=== PATIENT | female | born 1990 | race American Indian/Alaskan Native ===

== ENCOUNTER 2020-11-19 16:51 | Emergency (ER) | payer OTHER, MEDICAID, SELFPAY ==
[2020-11-19 16:55] VITALS: BP 165/100; PULSE 111; RESP 15; TEMP 37.8; O2SAT 97; BMI 26.8
--- NOTE | 2020-11-19 17:07 | ED_ITS ---
HPI - General Adult <Isiah Shane DO - Last Filed: 11/20/20 07:25> General Chief complaint: Abdominal Pain Stated complaint: RT THIGH SPIDER BITES THROWING UP Time Seen by Provider: 11/19/20 17:03 Source: patient Mode of arrival: Ambulatory Limitations: no limitations History of Present Illness HPI narrative: Patient is a 29-year-old female who is here for evaluation of multiple symptoms. She states she has 2 spider bites on her right thigh that she would like to have looked at. States she has had these in the past but these have lasted longer. She also states she has been having multiple episodes of vomiting today. No abdominal pain. She states that every time she tries to eat she throws up. Does not have any nausea medication at home. Related Data Previous Rx's Medication Instructions Recorded cephalexin 500 mg PO BID 7 Days #14 cap 11/19/20 ondansetron 4 mg PO Q6H PRN #14 tab 11/19/20 Allergies Allergy/AdvReac Type Severity Reaction Status Date / Time No Known Drug Allergies Allergy Verified 11/19/20 17:03 Review of Systems <Isiah Shane DO - Last Filed: 11/20/20 07:25> Constitutional Constitutional: Denies chills, Denies fever(s) and Denies headache(s) Eyes Eyes: Denies change in vision ENT Ears, Nose, Mouth, and Throat: Denies headache(s) and Denies sore throat Cardiovascular Cardiovascular: Denies chest pain and Reports dyspnea (With the vomiting) Respiratory Respiratory: Reports dyspnea (With the vomiting) Gastrointestinal Gastrointestinal: Denies abdominal pain, Denies change in bowel habits, Reports nausea and Reports vomiting Genitourinary Genitourinary: Denies dysuria Genitourinary: Denies dysuria and Denies vaginal discharge Musculoskeletal Musculoskeletal: Denies arthralgias and Denies myalgias Integumentary/Breasts Comments: Spider bites on right thigh Neurologic Neurologic: Denies behavioral changes and Denies headache(s) Psychiatric Psychiatric: Denies behavioral changes Hematologic/Lymphatic On Anticoagulants: No Allergic/Immunologic Allergic/Immunologic: Denies urticaria Patient History <Isiah Shane DO - Last Filed: 11/20/20 07:25> Medical History Patient denies medical problems Social History Smoking Status: Current every day smoker Smoking Status: Current every day smoker alcohol intake frequency: holidays/special occasions only Substance Use Type: does not use Exam <DO Анна Segura Last Filed: 11/20/20 07:25> Initial Vital Signs Initial Vital Signs: Vital Signs Temperature 100.0 F H 11/19/20 16:55 Pulse Rate 111 H 11/19/20 16:55 Respiratory Rate 15 11/19/20 16:55 Blood Pressure 165/100 H 11/19/20 16:55 Pulse Oximetry 97 11/19/20 16:55 Const General: cooperative and comfortable Limitations: mental status not altered HENMT Head: normal to inspection and normocephalic Eyes General: appearance normal, both eyes and all related structures Resp Effort & Inspection: normal respiratory effort Auscultation: clear to auscultation bilaterally Cardio Rate: tachycardic Rhythm: regular rhythm GI Inspection: non-distended Palpation: soft, No firm and No tender Skin Other: Patient has 2 distinct sub cm well circumscribed red lesions on her right thigh. There is no surrounding erythema. There is no pustules. No vesicles. No drainage. No breaks in the skin. Neuro General: patient alert, patient awake and patient oriented x3 Cognition: normal cognition Speech: speech normal Extrem General: normal to inspection, capillary refill normal and No edema Psych Appearance: grossly normal and well kempt <DO Анна Tavera Last Filed: 11/20/20 05:45> Initial Vital Signs Initial Vital Signs: Vital Signs Temperature 100.0 F H 11/19/20 16:55 Pulse Rate 111 H 11/19/20 16:55 Respiratory Rate 15 11/19/20 16:55 Blood Pressure 165/100 H 11/19/20 16:55 Pulse Oximetry 97 11/19/20 16:55 Scores <DO Анна Segura Last Filed: 11/20/20 07:25> GCS [place]ar coma scale eye opening: Spontaneous Noman coma scale verbal response: Orientated [place] coma scale motor response: Obey commands Bol[place]ar coma scale total score: 15 Course <DO Анна Segura Last Filed: 11/20/20 07:25> Orders Ordered: ED Orders 11/20/20 05:52 US abdomen limited Stat Discontinued Medications Cephalexin HCl (Cephalexin 250 Mg Capsule) 500 mg PO NOW ONE Stop: 11/19/20 18:29 Last Admin: 11/19/20 19:15 Dose: 500 mg Documented by: JESS Sodium Chloride (Normal Saline 0.9%) 1,000 mls @ 1,000 mls/hr IV BOLUS ONE Stop: 11/19/20 18:56 Last Infusion: 11/19/20 19:38 Dose: 0 mls/hr Documented by: Admin: 11/19/20 18:07 Dose: 1,000 mls/hr Documented by: KATERINA Ketorolac Tromethamine (Ketorolac 30 Mg/Ml Vial) 60 mg IM NOW ONE Stop: 11/19/20 17:08 Last Admin: 11/19/20 17:31 Dose: 60 mg Documented by: KATERINA Ondansetron HCl (Ondansetron 4 Mg/2 Ml Inj) 4 mg IV NOW ONE Stop: 11/19/20 17:08 Last Admin: 11/19/20 17:31 Dose: 4 mg Documented by: KATERINA Vital Signs Vital signs: Vital Signs - 8 hr 11/19/20 16:55 Temperature 100.0 F H Pulse Rate 111 H Respiratory Rate 15 Blood Pressure 165/100 H Pulse Oximetry 97 <Noel Vega DO - Last Filed: 11/20/20 05:45> Course Course Narrative: Patient received in sign-out from Dr. Shane. She has been resting comfortably, tolerated her antibiotics orally, feels well and is ready to go. She has had her questions answered to her apparent satisfaction and understands return precautions Orders Ordered: ED Orders 11/20/20 05:52 US abdomen limited Stat Discontinued Medications Cephalexin HCl (Cephalexin 250 Mg Capsule) 500 mg PO NOW ONE Stop: 11/19/20 18:29 Last Admin: 11/19/20 19:15 Dose: 500 mg Documented by: JESS Sodium Chloride (Normal Saline 0.9%) 1,000 mls @ 1,000 mls/hr IV BOLUS ONE Stop: 11/19/20 18:56 Last Infusion: 11/19/20 19:38 Dose: 0 mls/hr Documented by: Admin: 11/19/20 18:07 Dose: 1,000 mls/hr Documented by: KATERINA Ketorolac Tromethamine (Ketorolac 30 Mg/Ml Vial) 60 mg IM NOW ONE Stop: 11/19/20 17:08 Last Admin: 11/19/20 17:31 Dose: 60 mg Documented by: KATERINA Ondansetron HCl (Ondansetron 4 Mg/2 Ml Inj) 4 mg IV NOW ONE Stop: 11/19/20 17:08 Last Admin: 11/19/20 17:31 Dose: 4 mg Documented by: KATERINA Vital Signs Vital signs: Vital Signs - 8 hr 11/19/20 16:55 Temperature 100.0 F H Pulse Rate 111 H Respiratory Rate 15 Blood Pressure 165/100 H Pulse Oximetry 97 Medical Decision Making <Isiah Shane DO - Last Filed: 11/20/20 07:25> Lab Data Lab results reviewed: Yes I reviewed the patient's lab results. Result diagrams: 11/19/20 17:05 11/19/20 17:05 Labs: Lab Results 11/19/20 11/19/20 11/19/20 Range/Units 17:05 17:05 17:05 WBC 14.3 H (4.5-11.0) X10^3/uL RBC 5.13 (4.0-5.2) X10^6/uL Hgb 16.1 H (12.0-16.0) g/dL Hct 47.7 H (36-46) % MCV 93.1 (80-100) fL MCH 31.5 (26-34) PG MCHC 33.8 (30-36) % RDW 12.5 (11.6-14.8) % Plt Count 223 (150-400) X10^3/uL Neut % (Auto) 93.0 H (50-75) % Lymph % (Auto) 2.5 L (25-40) % [place] % (Auto) 3.4 (3-14) % Eos % (Auto) 0.8 L (2-4) % Baso % (Auto) 0.3 (0-2) % Neut # (Auto) 94457 H (7670-5685) /uL Lymph # (Auto) 400 L (5739-6765) /uL [place] # (Auto) 500 (0-900) /uL Eos # (Auto) 100 (0-450) /uL Baso # (Auto) 0 (0-100) /uL PT 11.0 (10.1-12.7) SECONDS INR 1.0 (0.9-1.3) APTT 39 H (26.4-36.2) SECONDS Sodium 138 (137-145) mmol/L Potassium 4.1 (3.4-5.1) mmol/L Chloride 107 (98-107) mmol/L Carbon Dioxide 22 (22-32) mmol/L BUN 16 (7-17) mg/dL Creatinine 0.66 (0.52-1.04) mg/dL Estimated GFR > 60.0 (>60) mL/min BUN/Creatinine Ratio 24.2 H (6-22) Glucose 116 H (70-100) mg/dL Calcium 9.1 (8.4-10.2) mg/dL Total Bilirubin 0.4 (0.2-1.3) mg/dL AST 32 (14-36) IU/L ALT 25 (<35) IU/L Alkaline Phosphatase 103 (38-126) U/L Total Protein 8.1 (6.3-8.2) g/dL Albumin 4.7 (3.5-5.0) g/dL Globulin 3.4 (1.7-4.1) g/dL Albumin/Globulin Ratio 1.4 (1.0-2.8) Lipase 129 (23-300) U/L Urine RBC (0-5/HPF) Urine WBC (0-5/HPF) Ur Squamous Epith Cells (0-5/HPF) Urine Bacteria (None) Ur Culture Indicated? SARS-CoV-2 (PCR) (Negative) 11/19/20 11/19/20 Range/Units 17:05 17:20 WBC (4.5-11.0) X10^3/uL RBC (4.0-5.2) X10^6/uL Hgb (12.0-16.0) g/dL Hct (36-46) % MCV (80-100) fL MCH (26-34) PG MCHC (30-36) % RDW (11.6-14.8) % Plt Count (150-400) X10^3/uL Neut % (Auto) (50-75) % Lymph % (Auto) (25-40) % [place] % (Auto) (3-14) % Eos % (Auto) (2-4) % Baso % (Auto) (0-2) % Neut # (Auto) (1417-4306) /uL Lymph # (Auto) (3913-0461) /uL [place] # (Auto) (0-900) /uL Eos # (Auto) (0-450) /uL Baso # (Auto) (0-100) /uL PT (10.1-12.7) SECONDS INR (0.9-1.3) APTT (26.4-36.2) SECONDS Sodium (137-145) mmol/L Potassium (3.4-5.1) mmol/L Chloride (98-107) mmol/L Carbon Dioxide (22-32) mmol/L BUN (7-17) mg/dL Creatinine (0.52-1.04) mg/dL Estimated GFR (>60) mL/min BUN/Creatinine Ratio (6-22) Glucose (70-100) mg/dL Calcium (8.4-10.2) mg/dL Total Bilirubin (0.2-1.3) mg/dL AST (14-36) IU/L ALT (<35) IU/L Alkaline Phosphatase (38-126) U/L Total Protein (6.3-8.2) g/dL Albumin (3.5-5.0) g/dL Globulin (1.7-4.1) g/dL Albumin/Globulin Ratio (1.0-2.8) Lipase (23-300) U/L Urine RBC 5-10/hpf H (0-5/HPF) Urine WBC 10-30/hpf H (0-5/HPF) Ur Squamous Epith Cells 0-1 /hpf (0-5/HPF) Urine Bacteria Few (2-10) H (None) Ur Culture Indicated? Specimen cultured SARS-CoV-2 (PCR) Negative (Negative) Point of Care Testing Test Results Negative Urine Dip Bedside Urine Glucose Negative Bedside Urine Bilirubin + 1 Bedside Urine Ketone - Negative Urine Specific [place] 1.020 Bedside Urine Occult Blood + Bedside Urine pH 6.0 Bedside Urine Protein +/- 15 Bedside Urine Urobilinogen - Negative Bedside Urine Nitrite - Negative Bedside Urine Leukocytes +/- 15 Esterase Point of care testing: Point of Care Testing Test Results Negative Urine Dip Bedside Urine Glucose Negative Bedside Urine Bilirubin + 1 Bedside Urine Ketone - Negative Urine Specific [place] 1.020 Bedside Urine Occult Blood + Bedside Urine pH 6.0 Bedside Urine Protein +/- 15 Bedside Urine Urobilinogen - Negative Bedside Urine Nitrite - Negative Bedside Urine Leukocytes +/- 15 Esterase MDM Narrative Medical decision making narrative: Patient does have leukocytosis however this could be from her vomiting. Her urinalysis has also concerning for urinary tract infection. She states she has no concerns for any sexually transmitted infections. She does not have any abdominal tenderness. Is tachycardic upon arrival. Has no CVA tenderness. Rest of her abdominal labs are unremarkable. The lesions on her right anterior thigh appear well. I have low suspicion for ?spider bites ?look more like bug bites but do not have any signs of an infection. She denies any allergies to medications. Plan will be is to treat her symptoms and give her dose of oral antibiotics here in the emergency department. She can tolerate this does plan will be is to discharge home with remainder of treatment. She was given return precautions and follow-up instructions. Care turned over to Dr. Vega to follow-up on ability to tolerate oral intake. <Noel Vega, DO - Last Filed: 11/20/20 05:45> Lab Data Labs: Lab Results 11/19/20 11/19/20 11/19/20 Range/Units 17:05 17:05 17:05 WBC 14.3 H (4.5-11.0) X10^3/uL RBC 5.13 (4.0-5.2) X10^6/uL Hgb 16.1 H (12.0-16.0) g/dL Hct 47.7 H (36-46) % MCV 93.1 (80-100) fL MCH 31.5 (26-34) PG MCHC 33.8 (30-36) % RDW 12.5 (11.6-14.8) % Plt Count 223 (150-400) X10^3/uL Neut % (Auto) 93.0 H (50-75) % Lymph % (Auto) 2.5 L (25-40) % [place] % (Auto) 3.4 (3-14) % Eos % (Auto) 0.8 L (2-4) % Baso % (Auto) 0.3 (0-2) % Neut # (Auto) 79296 H (6710-4587) /uL Lymph # (Auto) 400 L (0141-8862) /uL [place] # (Auto) 500 (0-900) /uL Eos # (Auto) 100 (0-450) /uL Baso # (Auto) 0 (0-100) /uL PT 11.0 (10.1-12.7) SECONDS INR 1.0 (0.9-1.3) APTT 39 H (26.4-36.2) SECONDS Sodium 138 (137-145) mmol/L Potassium 4.1 (3.4-5.1) mmol/L Chloride 107 (98-107) mmol/L Carbon Dioxide 22 (22-32) mmol/L BUN 16 (7-17) mg/dL Creatinine 0.66 (0.52-1.04) mg/dL Estimated GFR > 60.0 (>60) mL/min BUN/Creatinine Ratio 24.2 H (6-22) Glucose 116 H (70-100) mg/dL Calcium 9.1 (8.4-10.2) mg/dL Total Bilirubin 0.4 (0.2-1.3) mg/dL AST 32 (14-36) IU/L ALT 25 (<35) IU/L Alkaline Phosphatase 103 (38-126) U/L Total Protein 8.1 (6.3-8.2) g/dL Albumin 4.7 (3.5-5.0) g/dL Globulin 3.4 (1.7-4.1) g/dL Albumin/Globulin Ratio 1.4 (1.0-2.8) Lipase 129 (23-300) U/L Urine RBC (0-5/HPF) Urine WBC (0-5/HPF) Ur Squamous Epith Cells (0-5/HPF) Urine Bacteria (None) Ur Culture Indicated? SARS-CoV-2 (PCR) (Negative) 11/19/20 11/19/20 Range/Units 17:05 17:20 WBC (4.5-11.0) X10^3/uL RBC (4.0-5.2) X10^6/uL Hgb (12.0-16.0) g/dL Hct (36-46) % MCV (80-100) fL MCH (26-34) PG MCHC (30-36) % RDW (11.6-14.8) % Plt Count (150-400) X10^3/uL Neut % (Auto) (50-75) % Lymph % (Auto) (25-40) % [place] % (Auto) (3-14) % Eos % (Auto) (2-4) % Baso % (Auto) (0-2) % Neut # (Auto) (2427-0308) /uL Lymph # (Auto) (9157-1975) /uL [place] # (Auto) (0-900) /uL Eos # (Auto) (0-450) /uL Baso # (Auto) (0-100) /uL PT (10.1-12.7) SECONDS INR (0.9-1.3) APTT (26.4-36.2) SECONDS Sodium (137-145) mmol/L Potassium (3.4-5.1) mmol/L Chloride (98-107) mmol/L Carbon Dioxide (22-32) mmol/L BUN (7-17) mg/dL Creatinine (0.52-1.04) mg/dL Estimated GFR (>60) mL/min BUN/Creatinine Ratio (6-22) Glucose (70-100) mg/dL Calcium (8.4-10.2) mg/dL Total Bilirubin (0.2-1.3) mg/dL AST (14-36) IU/L ALT (<35) IU/L Alkaline Phosphatase (38-126) U/L Total Protein (6.3-8.2) g/dL Albumin (3.5-5.0) g/dL Globulin (1.7-4.1) g/dL Albumin/Globulin Ratio (1.0-2.8) Lipase (23-300) U/L Urine RBC 5-10/hpf H (0-5/HPF) Urine WBC 10-30/hpf H (0-5/HPF) Ur Squamous Epith Cells 0-1 /hpf (0-5/HPF) Urine Bacteria Few (2-10) H (None) Ur Culture Indicated? Specimen cultured SARS-CoV-2 (PCR) Negative (Negative) Point of Care Testing Test Results Negative Urine Dip Bedside Urine Glucose Negative Bedside Urine Bilirubin + 1 Bedside Urine Ketone - Negative Urine Specific [place] 1.020 Bedside Urine Occult Blood + Bedside Urine pH 6.0 Bedside Urine Protein +/- 15 Bedside Urine Urobilinogen - Negative Bedside Urine Nitrite - Negative Bedside Urine Leukocytes +/- 15 Esterase Point of care testing: Point of Care Testing Test Results Negative Urine Dip Bedside Urine Glucose Negative Bedside Urine Bilirubin + 1 Bedside Urine Ketone - Negative Urine Specific [place] 1.020 Bedside Urine Occult Blood + Bedside Urine pH 6.0 Bedside Urine Protein +/- 15 Bedside Urine Urobilinogen - Negative Bedside Urine Nitrite - Negative Bedside Urine Leukocytes +/- 15 Esterase Discharge Plan Departure Patient Disposition: Home Clinical Impression: Urinary tract infection Qualifiers: Urinary tract infection type: acute cystitis Hematuria presence: without hematuria Qualified Code(s): N30.00 - Acute cystitis without hematuria Vomiting Qualifiers: Vomiting type: unspecified Vomiting Intractability: intractable Nausea presence: with nausea Qualified Code(s): R11.2 - Nausea with vomiting, unspecifi ed Instructions: DI for Urinary Tract Infection (UTI), DI for Vomiting -- Adult Activity Restrictions/Additional Instructions: *You have been diagnosed with [urinary tract infection and vomiting] *What to do: *Please continue to take your regular medications as directed. [ ] New medication prescriptions sent to your pharmacy: [ ] [x ] New medication written as a paper prescription [ ] No new medications given *Please follow up with your primary care provider in 2-3 days, call for an appointment. Let them know you were seen in the Emergency Department and that we ask that you be seen in follow up. We will electronically transmit a record of today's note if your PCP is in our system *If you do not have a primary care provider please contact the [facility] Resource line at [phone]. They will ask some questions about your medical history and help get you set up with a doctor in the community. *Return to Emergency Department if you should have any new, worsening or concerning symptoms, such as [fever greater than 101 F, shaking chills, worsening pain, persistent vomiting or other bothersome symptoms] Prescriptions: New cephalexin 500 mg capsule 500 mg PO BID 7 Days Qty: 14 RF: 0 ondansetron 4 mg tablet,disintegrating 4 mg PO Q6H PRN (Reason: nausea and vomiting) Qty: 14 RF: 0 Referrals: [facility] [Outside]
[2020-11-19 17:11] LABS: Add Manual Diff / Slide Review NO; Basophils Absolute Auto 0 /uL (0-100); Basophils Percent Auto 0.3 % (0-2); Eosinophils Absolute Auto 100 /uL (0-450); Eosinophils Percent Auto 0.8 % (2-4); Hematocrit 47.7 % (36-46); Hemoglobin 16.1 g/dL (12.0-16.0); Lymphocytes Absolute Auto 400 /uL (1100-4500); Lymphocytes Percent Auto 2.5 % (25-40); Mean Corpuscular HGB Conc 33.8 % (30-36); Mean Corpuscular Hemoglobin 31.5 PG (26-34); Mean Corpuscular Volume 93.1 fL (80-100); Monocytes Absolute Auto 500 /uL (0-900); Monocytes Percent Auto 3.4 % (3-14); Neutrophils Absolute Auto 13300 /uL (1500-7000); Platelet Count 223 X10^3/uL (150-400); Red Blood Cell Count 5.13 X10^6/uL (4.0-5.2); Red Cell Distribution Width 12.5 % (11.6-14.8); White Blood Cell Count 14.3 X10^3/uL (4.5-11.0)
[2020-11-19 17:22] LABS: COVID19 -Nasal RAPID Negative (Negative)
[2020-11-19 17:26] LABS: Alanine Aminotransferase 25 IU/L (<35); Albumin 4.7 g/dL (3.5-5.0); Albumin Globulin Ratio 1.4 (1.0-2.8); Alkaline Phosphatase 103 U/L (38-126); Aspartate Aminotransferase 32 IU/L (14-36); BUN Creatinine Ratio 24.2 (6-22); Bilirubin Total 0.4 mg/dL (0.2-1.3); Blood Urea Nitrogen 16 mg/dL (7-17); Calcium 9.1 mg/dL (8.4-10.2); Carbon Dioxide 22 mmol/L (22-32); Chloride 107 mmol/L (98-107); Estimated Glomerular Filt Rate > 60.0 mL/min (>60); Globulin 3.4 g/dL (1.7-4.1); Glucose 116 mg/dL (70-100); HEMOLYSIS < 15 (0-50); Lipase 129 U/L (23-300); PTT Partial Thromboplastin Tim 39 SECONDS (26.4-36.2); Potassium 4.1 mmol/L (3.4-5.1); Sodium 138 mmol/L (137-145); Total Protein 8.1 g/dL (6.3-8.2)
[2020-11-19] MEDS: ONDANSETRON 4 MG/2 ML INJ IV (17:31)
[2020-11-19] MEDS: KETOROLAC 30 MG/ML VIAL 60 MG IM (17:31)
[2020-11-19 17:56] LABS: Bacteria Urine Few (2-10); Culture Indicated Urine Specimen Cultured; RBC Urine 5-10/HPF (0-5/HPF); Squamous Epithelial Cell Urine 0-1 /HPF (0-5/HPF); WBC Urine 10-30/HPF (0-5/HPF)
[2020-11-19] MEDS: SODIUM CHLORIDE 0.9% 1,000 ML 1000 ML IV (18:07)
[2020-11-19] MEDS: cephALEXin 250 MG CAPSULE 500 MG PO (19:15)
[2020-11-19 20:48] VITALS: BP 128/77; PULSE 89; RESP 18; TEMP 36.1; O2SAT 97
--- NOTE | 2020-11-20 05:52 | DI.US.S_ITS ---
PROCEDURE: US ABDOMEN LIMITED INDICATIONS: PAIN; N/V TECHNIQUE: Real-time focused scanning was performed of the abdomen, with image documentation. COMPARISON: None. FINDINGS: Liver is normal in size and homogeneous in echotexture. No focal hepatic mass lesions. Gallbladder contains mobile gallstones. Largest gallstone measures 1.6 centimeters. No gallbladder wall thickening with gallbladder wall measuring 2.0 millimeters. No pericholecystic fluid. No sonographic Harman sign. Biliary tree is nondilated. Common bile duct measures 5.7 millimeters. Pancreas is sonographically normal. IMPRESSION: Cholelithiasis without sonographic evidence of cholecystitis. If there is continued clinical concern for cholecystitis, a nuclear medicine HIDA scan should be considered for further evaluation. Dictated by: Katie Arias MD, PhD on 11/20/2020 at 8:25 Approved by: Katie Arias MD, PhD on 11/20/2020 at 8:26
== END 2020-11-19 20:25 | disposition home or self-care (01) ==
PROVIDERS: Emergency Medicine; Emergency Provider Emergency Medicine
DX: N30.00 Acute cystitis without hematuria (principal); R11.2 Nausea with vomiting, unspecified; R06.00 Dyspnea, unspecified; Z20.822 Contact with and (suspected) exposure to COVID-19
CPT/HCPCS: 36415; 80053; 81003; 81015; 81025; 83690; 85025; 85610; 85730; 87086; 87635; 96361; 96372; 96374; 99284; C9803; J1885; J2405

== ENCOUNTER 2020-11-20 03:45 | Observation (INO) | payer OTHER, MEDICAID, SELFPAY ==
[2020-11-20] VITALS (14 sets, daily range): BP systolic 115–136; BP diastolic 72–86; PULSE 90–123; RESP 16–22; TEMP 36.2–37.6; O2SAT 96–99; BMI 27.1
[2020-11-20] MEDS: ONDANSETRON 4 MG/2 ML INJ IV ×2 (04:22→15:33)
[2020-11-20] MEDS: SODIUM CHLORIDE 0.9% 1,000 ML 125 ML IV ×3 (04:24→17:19)
--- NOTE | 2020-11-20 04:29 | DI.CT.S_ITS ---
PROCEDURE: CT ABDOMEN PELVIS W CON INDICATIONS: intractable vomiting, lower abdominal pain TECHNIQUE: After the administration of oral and intravenous contrast, 5 mm thick sections acquired from the diaphragms to the symphysis. 5 mm thick coronal and sagittal reformats were performed. For radiation dose reduction, the following was used: automated exposure control, adjustment of mA and/or kV according to patient size. COMPARISON: None. FINDINGS: Image quality: Excellent. ABDOMEN: Lung bases: Lung bases are clear. Minimal subsegmental atelectasis in both lung bases. Heart size is normal. Solid organs: Liver is normal in size and enhancement. A focal area of low density adjacent to the falciform ligament is consistent with focal fatty infiltration. Gallbladder is distended with multiple stones.. Biliary system is non-dilated. Pancreas enhances normally. Spleen is normal in size and enhancement. No adrenal nodules. Kidneys are normal in size and enhancement, without hydronephrosis. The left kidney has multiple subcentimeter low-density lesions which are too small to further characterize by CT criteria but are likely cysts. Peritoneum and bowel: Stomach, small bowel, and colon loops are normal in caliber and wall thickness. No free fluid or air. The appendix is normal. Nodes and vessels: No retroperitoneal or mesenteric adenopathy. Aorta and inferior vena cava are normal in caliber. Miscellaneous: No ventral hernias. PELVIS: Genitourinary: Bladder wall thickness is normal. The uterus is normal in size and enhances margin asleep. The adnexa are normal. Miscellaneous: No inguinal hernias or adenopathy. Bones: No suspicious bony lesions. No vertebral body compression fractures. IMPRESSION: 1. Cholelithiasis without evidence of cholecystitis. There is no wall thickening or pericholecystic fluid. The gallbladder is mildly distended. Consider ultrasound. 2. Nonobstructing left renal calculi. 3. Diffuse bladder wall thickening. Findings are nonspecific but suggest cystitis. Please correlate with urinalysis. Comment: Final report is concordant with preliminary interpretation by [facility] Dictated by: Santi Figueroa M.D. on 11/20/2020 at 7:39 Approved by: Santi Figueroa M.D. on 11/20/2020 at 7:44
[2020-11-20 04:40] LABS: Add Manual Diff / Slide Review NO; Basophils Absolute Auto 0 /uL (0-100); Basophils Percent Auto 0.3 % (0-2); Eosinophils Absolute Auto 0 /uL (0-450); Eosinophils Percent Auto 0.3 % (2-4); Hematocrit 43.4 % (36-46); Hemoglobin 14.7 g/dL (12.0-16.0); Lymphocytes Absolute Auto 200 /uL (1100-4500); Lymphocytes Percent Auto 2.5 % (25-40); Mean Corpuscular HGB Conc 33.8 % (30-36); Mean Corpuscular Hemoglobin 31.3 PG (26-34); Mean Corpuscular Volume 92.6 fL (80-100); Monocytes Absolute Auto 300 /uL (0-900); Monocytes Percent Auto 3.9 % (3-14); Neutrophils Absolute Auto 7500 /uL (1500-7000); Platelet Count 185 X10^3/uL (150-400); Red Blood Cell Count 4.69 X10^6/uL (4.0-5.2); Red Cell Distribution Width 12.2 % (11.6-14.8)
[2020-11-20 04:42] LABS: Alanine Aminotransferase 22 IU/L (<35); Albumin 3.6 g/dL (3.5-5.0); Albumin Globulin Ratio 1.2 (1.0-2.8); Alkaline Phosphatase 83 U/L (38-126); Aspartate Aminotransferase 28 IU/L (14-36); BUN Creatinine Ratio 22.1 (6-22); Bilirubin Total 0.4 mg/dL (0.2-1.3); Blood Urea Nitrogen 15 mg/dL (7-17); Calcium 7.9 mg/dL (8.4-10.2); Carbon Dioxide 22 mmol/L (22-32); Chloride 109 mmol/L (98-107); Estimated Glomerular Filt Rate > 60.0 mL/min (>60); Globulin 2.9 g/dL (1.7-4.1); Glucose 131 mg/dL (70-100); HEMOLYSIS < 15 (0-50); Potassium 3.6 mmol/L (3.4-5.1); Sodium 137 mmol/L (137-145); Total Protein 6.5 g/dL (6.3-8.2)
--- NOTE | 2020-11-20 04:57 | ED_ITS ---
HPI - Nausea/Vomiting/Diarrhea General Chief complaint: Nausea/Vomiting/Diarrhea Stated complaint: has uti - nausea vomiting Time Seen by Provider: 11/20/20 03:54 Source: patient Mode of arrival: Ambulatory Limitations: no limitations History of Present Illness HPI Narrative: 29-year-old female daily smoker returns for 2nd time today and complaint of ongoing vomiting. She had come in earlier in the day with the [facility] complaint of multiple symptoms including some insect bites on her right thigh as well as multiple episodes of vomiting and some urinary complaints such as possible increased urination. She was noted to have an elevated white blood cell count and signs of UTI. She was given fluids, antiemetics and antibiotics orally and observed which she tolerated without difficulty. She was discharged home with return precautions. Since being home she has vomited multiple times and is unable to keep down even water. She now has some lower abdominal pain, left worse than right. She denies any measured fever or back pain. MD complaint: nausea, vomiting and abdominal pain Description of Vomiting: food contents Description of Diarrhea: watery Location of pain: LLQ Severity: moderate Quality: cramping and aching Pain Consistency: constant Relieving factors: none Exacerbating factors: vomiting Related Data Previous Rx's Medication Instructions Recorded cephalexin 500 mg PO BID 7 Days #14 cap 11/19/20 ondansetron 4 mg PO Q6H PRN #14 tab 11/19/20 Allergies Allergy/AdvReac Type Severity Reaction Status Date / Time No Known Drug Allergies Allergy Verified 11/19/20 17:03 Review of Systems Constitutional Constitutional: Denies chills, Denies fatigue, Denies fever(s), Denies frequent falls, Denies lethargy and Denies weakness Eyes Eyes: Denies change in vision, Denies eye discharge, Denies irritation and Denies loss of vision ENT Ears, Nose, Mouth, and Throat: Denies change in voice, Denies dizziness, Denies neck pain, Denies sore throat and Denies throat swelling Cardiovascular Cardiovascular: Denies chest pain, Denies irregular heart rhythm, Denies lightheadedness, Denies palpitations, Denies dyspnea, Denies dyspnea on exertion and Denies orthopnea Respiratory Respiratory: Denies cough, Denies dyspnea, Denies dyspnea on exertion and Denies wheezing Gastrointestinal Gastrointestinal: Reports abdominal pain, Denies change in bowel habits, Denies diarrhea, Reports nausea and Reports vomiting Genitourinary Comments: Urinary frequency Musculoskeletal Musculoskeletal: Denies neck pain and Denies numbness Integumentary/Breasts Skin/Breast: Denies pruritus, Denies erythema, Denies rash and Denies wounds Neurologic Neurologic: Denies behavioral changes, Denies confusion, Denies dizziness, Denies frequent falls, Denies loss of vision, Denies numbness and Denies weakness Psychiatric Psychiatric: Denies anxiety, Denies behavioral changes, Denies confusion, Denies depression, Denies homicidal ideation and Denies suicidal ideation Endocrine Endocrine: Denies fatigue, Denies flushing and Denies palpitations Hematologic/Lymphatic Hematologic/Lymphatic: Denies easy bruising Allergic/Immunologic Allergic/Immunologic: Denies urticaria, Denies throat swelling and Denies wheezing Patient History Medical History Patient denies medical problems Social History Smoking Status: Current every day smoker Smoking Status: Current every day smoker alcohol intake frequency: holidays/special occasions only Substance Use Type: does not use Exam Narrative Exam Narrative: GENERAL: [29] year old patient appears stated age. Well- nourished, well-developed patient, in moderate distress, mildly pale, holding an emesis bag HEAD: Atraumatic. Normocephalic. EYES: Pupils equal round and reactive. Extraocular motions intact. No scleral icterus. No injection or drainage. ENT: Dry mucous membranes Nose without bleeding, purulent drainage. Throat without erythema, tonsillar hypertrophy or exudate. Airway patent. NECK: Trachea midline. Non tender CARDIOVASCULAR: Regular rate and rhythm without murmurs, gallops, or rubs. RESPIRATORY: Clear to auscultation. Breath sounds equal bilaterally. No wheezes, rales, or rhonchi. GASTROINTESTINAL: Abdomen soft, tender in the suprapubic and left lower quadrant region, nondistended. EXTREMITIES: No edema or joint tenderness. BACK: Nontender without deformity or crepitance. No flank tenderness. NEURO: AOx3. SKIN: No rash or erythema of visible areas Initial Vital Signs Initial Vital Signs: Vital Signs Temperature 97.2 F L 11/20/20 03:53 Pulse Rate 123 H 11/20/20 03:53 Respiratory Rate 22 11/20/20 03:53 Blood Pressure 136/83 11/20/20 03:53 Pulse Oximetry 97 11/20/20 03:53 Course Orders Ordered: ED Orders 11/20/20 04:00 Complete Blood Count AUTO DIFF Stat Comprehensive Metabolic Panel Stat 11/20/20 04:29 CT abdomen pelvis w con Stat 11/20/20 05:25 COVID19 - ADMIT (WAISTLINE JOINER swab/PCR) Stat Sodium Chloride (Normal Saline 0.9%) 1,000 mls @ 125 mls/hr IV CONT ERVIN Last Infusion: 11/20/20 05:29 Dose: 0 mls/hr Documented by: Admin: 11/20/20 04:24 Dose: 125 mls/hr Documented by: LUZ Discontinued Medications Sodium Chloride (Normal Saline 0.9%) 1,000 mls @ 1,000 mls/hr IV BOLUS ONE Stop: 11/20/20 05:27 Last Admin: 11/20/20 05:07 Dose: Not Given Documented by: LUZ Ondansetron HCl (Ondansetron 4 Mg/2 Ml Inj) 4 mg IV NOW ONE Stop: 11/20/20 04:18 Last Admin: 11/20/20 04:22 Dose: 4 mg Documented by: LUZ Vital Signs Vital signs: Vital Signs - 8 hr 11/20/20 03:53 11/20/20 05:14 11/20/20 05:15 Temperature 97.2 F L Pulse Rate 123 H 113 H 108 H Respiratory Rate 22 22 Blood Pressure 136/83 121/81 Pulse Oximetry 97 98 98 11/20/20 05:30 11/20/20 06:00 11/20/20 06:30 Temperature Pulse Rate 110 H 103 H 108 H Respiratory Rate Blood Pressure Pulse Oximetry 97 96 96 11/20/20 06:42 11/20/20 07:00 11/20/20 07:30 Temperature Pulse Rate 103 H 97 H 105 H Respiratory Rate Blood Pressure 120/72 Pulse Oximetry 98 96 98 MDM - Nausea/Vomiting/Diarrhea Lab Data Result diagrams: 11/20/20 04:00 11/20/20 04:00 Labs: Lab Results 11/20/20 11/20/20 11/20/20 Range/Units 04:00 04:00 05:25 WBC 8.0 (4.5-11.0) X10^3/uL RBC 4.69 (4.0-5.2) X10^6/uL Hgb 14.7 (12.0-16.0) g/dL Hct 43.4 (36-46) % MCV 92.6 (80-100) fL MCH 31.3 (26-34) PG MCHC 33.8 (30-36) % RDW 12.2 (11.6-14.8) % Plt Count 185 (150-400) X10^3/uL Neut % (Auto) 93.0 H (50-75) % Lymph % (Auto) 2.5 L (25-40) % [place] % (Auto) 3.9 (3-14) % Eos % (Auto) 0.3 L (2-4) % Baso % (Auto) 0.3 (0-2) % Neut # (Auto) 7500 H (6742-1456) /uL Lymph # (Auto) 200 L (6569-7074) /uL [place] # (Auto) 300 (0-900) /uL Eos # (Auto) 0 (0-450) /uL Baso # (Auto) 0 (0-100) /uL Sodium 137 (137-145) mmol/L Potassium 3.6 (3.4-5.1) mmol/L Chloride 109 H (98-107) mmol/L Carbon Dioxide 22 (22-32) mmol/L BUN 15 (7-17) mg/dL Creatinine 0.68 (0.52-1.04) mg/dL Estimated GFR > 60.0 (>60) mL/min BUN/Creatinine Ratio 22.1 H (6-22) Glucose 131 H (70-100) mg/dL Calcium 7.9 L (8.4-10.2) mg/dL Total Bilirubin 0.4 (0.2-1.3) mg/dL AST 28 (14-36) IU/L ALT 22 (<35) IU/L Alkaline Phosphatase 83 (38-126) U/L Total Protein 6.5 (6.3-8.2) g/dL Albumin 3.6 (3.5-5.0) g/dL Globulin 2.9 (1.7-4.1) g/dL Albumin/Globulin Ratio 1.2 (1.0-2.8) SARS-CoV-2 (PCR) Negative (Negative) Point of Care Testing Test Results Negative Urine Dip Bedside Urine Glucose Negative Bedside Urine Bilirubin - Negative Bedside Urine Ketone - Negative Urine Specific [place] 1.010 Bedside Urine Occult Blood - Negative Bedside Urine pH 7 Bedside Urine Protein +/- 15 Bedside Urine Urobilinogen - Negative Bedside Urine Nitrite - Negative Bedside Urine Leukocytes - Negative Esterase Imaging Data CT scan - abdomen/pelvis: Radiologist's Impression: thickened bladder wall, consistent with cystitis no obstruction MDM Narrative Medical decision making narrative: patient with second visit today, had trouble keeping liquids down earlier and there had been some discussion about possible admission at that time. She was able to go home eventually, but was unable to tolerate oral hydration or keep her medications. She is tachycardic and dehydrated and unable to go home due to persistent vomitng. She will need to come in for stabilization of her condition Discharge Plan Departure Patient Disposition: Admitted as Observation Clinical Impression: Urinary tract infection Qualifiers: Urinary tract infection type: acute cystitis Hematuria presence: without hematuria Qualified Code(s): N30.00 - Acute cystitis without hematuria Vomiting Qualifiers: Vomiting type: unspecified Vomiting Intractability: intractable Nausea presence: with nausea Qualified Code(s): R11.2 - Nausea with vomiting, unspecified Admit Date/Time: 11/20/20 07:32 Admit Provider: Marlen Mckeon
--- NOTE | 2020-11-20 06:43 | PC.NURSE ---
Addendum entered by Matilda Muse R.N. 11/20/20 06:44: Pending admit / not discharge. Original Note: Patient reporting reduction in nausea; US ongoing now; still cannot void at this time. Pending discharge.
[2020-11-20 07:19] LABS: COVID19 - ADMIT (NP swab/PCR) Negative (Negative)
--- NOTE | 2020-11-20 09:56 | PC.NURSE ---
PT ADMITTED TO ROOM 229 SHE DENIES PAIN AND ADMISSION COMPLETED- LUNGS CLEAR AND NO EDEMA- PT HAS NOT VOIDED SINCE ADMIT, RECENTLY TREATED IN ED FOR UTI- AND THEN RETURNED TO ED SHE WAS UNABLE TO GET RX FILLED AND SYMPTOMS RECURRED- ALLOWED ICE CHIPS AT THIS TIME. ORIENTED TO ROOM AND BED CONTROLS- AWAITING ORDERS
--- NOTE | 2020-11-20 11:26 | PM.HP.1 ---
History of Present Illness History of Present Illness Date Patient Seen: 11/20/20 Chief complaint: has uti - nausea vomiting Narrative: The patient is a 29-year-old female previously healthy who was in her usual state of health until 2 days prior to admission. Patient states she developed nausea and vomiting. She also describes minimal or burning with urination, but no blood in her urine, he has had intermittent fevers although she does not know how high pain. She complains of intermittent pain in the left lower quadrant, and right CVA tenderness. The patient was seen in the emergency department. It she was diagnosed with urinary tract infection. Patient was given oral antibiotics for treat. She developed significant vomiting. She was unable to keep the antibiotics down. Patient had a elevated white count of 14.8 at the time of admission. Because of her intractable nausea and vomiting she was admitted to the hospital for further evaluation. In the emergency department the patient underwent an abdominal CT id this confirmed thickening of the bladder consistent with cystitis S. In addition she had gallstones noted in the gallbladder but no evidence of acute cholecystitis patient underwent abdominal ultrasound which confirmed cholelithiasis but no evidence of cholecystitis. Recommendations were made for HIDA scan if cholecystitis were suspected patient's UA was positive for 10-30 bacteria, urine culture has been sent. Patient is admitted to the hospital at this time for intractable nausea and vomiting in the setting of acute cystitis. As the patient has not been able to eat she complains of headache, nausea, but no abdominal pain other than as above. She has no joint pains or rashes. Patient History Medical History Patient denies medical problems Family & Social History Family History (Updated 11/20/20 @ 11:32 by Noni Lopez MD) Other Adopted Social History: household members family Prior Living Arrangements House Safety & Behavioral: Feels Safe in Current Yes Environment Been Physically Hurt or No Threatened By a Person Suicidal Ideation Description None Tobacco & Substance use: Tobacco type cigarettes,cannabis/marijuana Smoking Status Current every day smoker alcohol intake frequency holiday/special occasion Substance Use Type does not use Meds Home Medications and Allergies Home Medications Medication Instructions Recorded Confirmed Type cephalexin 500 mg PO BID 7 Days #14 cap 11/19/20 11/20/20 Rx ondansetron 4 mg PO Q6H PRN #14 tab 11/19/20 11/20/20 Rx Allergies Allergy/AdvReac Type Severity Reaction Status Date / Time No Known Drug Allergies Allergy Verified 11/19/20 17:03 Review of Systems Review of Systems ROS: Yes All systems reviewed with the patient and are negative except as otherwise documented Exam Vital Signs (past 8 hours): - 11/20/20 03:53 11/20/20 05:14 11/20/20 05:15 Temperature 97.2 F L Pulse Rate 123 H 113 H 108 H Respiratory Rate 22 22 Blood Pressure 136/83 121/81 Pulse Oximetry 97 98 98 11/20/20 05:30 11/20/20 06:00 11/20/20 06:30 Temperature Pulse Rate 110 H 103 H 108 H Respiratory Rate Blood Pressure Pulse Oximetry 97 96 96 11/20/20 06:42 11/20/20 07:00 11/20/20 07:30 Temperature Pulse Rate 103 H 97 H 105 H Respiratory Rate Blood Pressure 120/72 Pulse Oximetry 98 96 98 11/20/20 07:36 Temperature Pulse Rate Respiratory Rate Blood Pressure 122/74 Pulse Oximetry Oxygen Delivery Method Room Air Narrative Exam Narrative: Pleasant ill-appearing female lying in bed who appears on come HEENT: Cephalic atraumatic, extraocular muscles are intact, oropharynx is clear, neck is supple Without adenopathy Lungs: To auscultate Cardiac exam: Regular rate and rhythm normal S1-S2 Abdomen soft, nontender, nondistended no palpable masses, no Harman sign, mild right CVA tender Extremities: No edema Neuro exam: Nonfocal Skin exam: No lesion Psychiatric exam: The patient is awake alert and appropriate hallucinations, no delusions Objective Labs Result Diagrams: 11/20/20 04:00 11/20/20 04:00 Labs: Laboratory Results - last 24 hr 11/20/20 11/20/20 11/20/20 04:00 04:00 05:25 WBC 8.0 RBC 4.69 Hgb 14.7 Hct 43.4 MCV 92.6 MCH 31.3 MCHC 33.8 RDW 12.2 Plt Count 185 Neut % (Auto) 93.0 H Lymph % (Auto) 2.5 L [place] % (Auto) 3.9 Eos % (Auto) 0.3 L Baso % (Auto) 0.3 Neut # (Auto) 7500 H Lymph # (Auto) 200 L [place] # (Auto) 300 Eos # (Auto) 0 Baso # (Auto) 0 Sodium 137 Potassium 3.6 Chloride 109 H Carbon Dioxide 22 BUN 15 Creatinine 0.68 Estimated GFR > 60.0 BUN/Creatinine Ratio 22.1 H Glucose 131 H Calcium 7.9 L Total Bilirubin 0.4 AST 28 ALT 22 Alkaline Phosphatase 83 Total Protein 6.5 Albumin 3.6 Globulin 2.9 Albumin/Globulin Ratio 1.2 Nasal Screen MRSA (PCR) SARS-CoV-2 (PCR) Negative 11/20/20 09:00 WBC RBC Hgb Hct MCV MCH MCHC RDW Plt Count Neut % (Auto) Lymph % (Auto) [place] % (Auto) Eos % (Auto) Baso % (Auto) Neut # (Auto) Lymph # (Auto) [place] # (Auto) Eos # (Auto) Baso # (Auto) Sodium Potassium Chloride Carbon Dioxide BUN Creatinine Estimated GFR BUN/Creatinine Ratio Glucose Calcium Total Bilirubin AST ALT Alkaline Phosphatase Total Protein Albumin Globulin Albumin/Globulin Ratio Nasal Screen MRSA (PCR) Negative for mrsa SARS-CoV-2 (PCR) Assessment & Plan Assessment & Plan narrative: 1. 29-year-old female admitted to the hospital for acute cystitis. Initial white count 14.8 yesterday, now 8.[address] of the abdomen and pelvis revealed the following findings: -Cholelithiasis without evidence of cholecystitis. There is no wall thickening or pericholecystic fluid. The gallbladder is mildly distended. Consider ultrasound. 2. Nonobstructing left renal calculi. 3. Diffuse bladder wall thickening. Findings are nonspecific but suggest cystitis. Please correlate with urinalysis. -abdominal ultrasound -Cholelithiasis without sonographic evidence of cholecystitis. If there is continued clinical concern for cholecystitis, a nuclear medicine HIDA scan should be considered for further evaluation. Left findings reveal a white count of 8 with a left shift, UA shows 5-10 rbc's, 10-30 wbc's, and 2-10 back to, Specimen sent for culture Plan continue IV fluids, clear liquid diet, continue antibiotics If the patient continues to have intractable nausea and vomiting will consider HIDA scan to rule out the possibility He acalculous cholecystitis Patient is low risk for DVT, will defer DVT prophylaxis If the patient is able to advance her diet and tolerate oral medications plans are underway for discharge home later today. Patient is mother is her durable power of commonwealth attorney, she is a full code will note that her record accordingly Quality MIPS - Admit I confirm the patient?s Advance Care Plan is present, Code status is documented, Surrogate decision maker is in patient?s record [If Yes, STOP here]: Yes
[2020-11-20] MEDS: CEFTRIAXONE 1 GM/50 ML FROZ.PIGGY IV (11:45)
[2020-11-20] MEDS: INFLUENZA VACCINE 0.5 ML SYRINGE IM (11:52)
[2020-11-20] MEDS: NICOTINE 14 PATCH 14 MG TOP (13:46)
[2020-11-20] MEDS: KETOROLAC 30 MG/ML VIAL IV ×2 (15:33→22:27)
[2020-11-20] MEDS: PROMETHAZINE 12.5 MG SUPP PR ×2 (17:27→22:34)
[2020-11-21] VITALS: BP 127/91; PULSE 101; RESP 20; TEMP 36.7; O2SAT 98
[2020-11-21] MEDS: SODIUM CHLORIDE 0.9% 1,000 ML 125 ML IV (01:25)
[2020-11-21 05:00] VITALS: BP 121/80; PULSE 83; RESP 16; TEMP 35.8; O2SAT 99
[2020-11-21 08:00] VITALS: BP 144/86; PULSE 88; RESP 16; TEMP 36.4; O2SAT 98
--- NOTE | 2020-11-21 08:03 | PC.NURSE ---
Addendum entered by Mehnaz Keenan R.N. 11/21/20 12:14: Pt was able to eat breakfast with only mild nausea. Pt has not taken any anti-emetics or pain medications this shift and is tolerating diet. Pt given discharge orders. Discussed underlying condition, follow up and signs and symptoms of worsening. Pt encouraged to stop smoking, given information about covid vaccines at pt request. Pt discharged to private vehicle without incident. Original Note: Dayshift Note: Pt A and O x3. Pt denies skin issues. Skin intact.Pt on RA. Lungs CTA. Denies SOB. Pt with HRR. No edema. BP WNL. Pt reports RLQ tenderness on deep palpation by MD. Nausea is intermittent. Pt will attempt to eat. Does not request anti-emetics at this time. intact. Voiding without difficulty. Urine not seen at this time. Pt reports that she woke up with neck pain, chronic. Pt given toradol by previous RN. Pt reports pain is improved. No other MSK issues. Dr. Lopez to bedside, discussed pt's current status and plan for the day. Pt with call marry within reach. This RN asked pt to call with concerns. Will notify MD with changes.
--- NOTE | 2020-11-21 09:18 | P.DS_ITS ---
History of Present Illness History of Present Illness Chief complaint: has uti - nausea vomiting Narrative: The patient is a 29-year-old female previously healthy who was in her usual state of health until 2 days prior to admission. Patient states she developed nausea and vomiting. She also describes minimal or burning with urination, but no blood in her urine, he has had intermittent fevers although she does not know how high pain. She complains of intermittent pain in the left lower quadrant, and right CVA tenderness. The patient was seen in the emergency department. It she was diagnosed with urinary tract infection. Patient was given oral antibiotics for treat. She developed significant vomiting. She was unable to keep the antibiotics down. Patient had a elevated white count of 14.8 at the time of admission. Because of her intractable nausea and vomiting she was admitted to the hospital for further evaluation. In the emergency department the patient underwent an abdominal CT id this confirmed thickening of the bladder consistent with cystitis S. In addition she had gallstones noted in the gallbladder but no evidence of acute cholecystitis patient underwent abdominal ultrasound which confirmed cholelithiasis but no evidence of cholecystitis. Recommendations were made for HIDA scan if cholecystitis were suspected patient's UA was positive for 10-30 bacteria, urine culture has been sent. Patient is admitted to the hospital at this time for intractable nausea and vomiting in the setting of acute cystitis. As the patient has not been able to eat she complains of headache, nausea, but no abdominal pain other than as above. She has no joint pains or rashes. Discharge Providers Provider Date of admission: 11/20/20 07:32 Discharge Date: 11/21/20 Discharge provider: Noni Lopez MD Summary Hospital Course Discharge Diagnosis: 1. Acute cystitis 2. Nausea and vomiting, resolved 3. Cholelithiasis Hospital Course: Patient is a 29-year-old female who was admitted to the hospital for recurrent nausea and vomiting following a diagnosis of acute cystitis. Patient was given a prescription for cephalexin. She was diagnosed with acute cystitis in the emergency room. The patient was unable to keep the medications down. Recurrent nausea and vomiting. She was brought in for evaluation. In the emergency room urine culture was obtained. The urine cul ture is negative at this time. However she did have tended [address] of the abdomen obtained. This showed some thickening around the bladder. There was also cholelithiasis but no evidence of cholecystitis. The patient had an abdominal ultrasound as well the abdominal ultrasound was unrevealing for acute cholecystitis, there was no pericholecystic fluid, there was no Harman sign. The patient's diet was slowly advanced. She did continue have some nausea but was ultimately able to advance to a regular diet. She tolerated it without difficulty. Patient was afebrile. She was deemed appropriate for discharge and arrangements were made for her to discharge home. Status at Discharge Cognitive/behavioral status at discharge: oriented Functional status at discharge: independent ambulation Overall status at discharge: patient is back to baseline Time Spent with Patient Time spent: Less than 30 minutes Exam Vital Signs (past 8 hours): - 11/21/20 05:00 11/21/20 08:00 Temperature 96.5 F L 97.5 F L Pulse Rate 83 88 Respiratory Rate 16 16 Blood Pressure 121/80 144/86 H Pulse Oximetry 99 98 Oxygen Delivery Method Room Air Oxygen Flow Rate 0 Narrative Exam Narrative: Pleasant female lying in bed Lungs: Clear to auscultation Cardiac exam: Regular rate and rhythm normal S1-S2 Abdomen: Soft, nontender, no nondistended, no palpable masses, board-like ri gidity, no rebound tenderness Extremities: No edema Objective Labs Result Diagrams: 11/20/20 04:00 11/20/20 04:00 Labs: Laboratory Results - last 24 hr 11/20/20 09:00 Nasal Screen MRSA (PCR) [facility] Medical History Patient denies medical problems Family History (Updated 11/20/20 @ 11:32 by Noni Lopez MD) Other Adopted Social History household members: family Smoking Status: Current every day smoker Discharge Assessment & Plan Assessment and Plan Assessment: 1. Acute cystitis 2. Seen vomiting now resolved Plan of Treatment: Discharge home Referral to primary care provider Continue antibiotics as previously prescribed Patient is advised to start on a full liquid diet and slowly advance to regular diet Discharge Plan Discharge Plan Patient Disposition: Home Discharge orders & Medications Prescriptions: Continued cephalexin 500 mg capsule 500 mg PO BID 7 Days Qty: 14 RF: 0 ondansetron 4 mg tablet,disintegrating 4 mg PO Q6H PRN (Reason: nausea and vomiting) Qty: 14 RF: 0 Discharge Health Status Multidrug resistant organism: No MDRO Diet/Activity/Treatments Diet: Diet as Tolerated and Full Liquid Skin/Wound/Dressing Care Report to your healthcare provider any signs of infection, such as:: chills, fever
--- NOTE | 2020-11-21 14:28 | CM.IDA ---
Initial DCP Assessment Note Pt is a 29 yo female, resident of [place], presented 5.5.21 for N/V. Patient was diagnosed with acute cystitis in the emergency room given a prescription for cephalexin, patient was unable to keep the medications down. Admitted observation for abd uktrasound which was unrevealing for acute cholecystitis. Diet slowly advanced, patient requiring now ant nausea meds or pain management and was DC home w/famil, no needs from DCP team PCP: Needs to establish Payer: [employer] Patient asks about establishing w/PCP, this [employer] TE[employer] ARCHITECT suggested to RN that patient call [facility] (same office she takes her son) to ask what providers are open and take her insurance. No needs from DC planning team today. MARTIN Gottlieb
== END 2020-11-21 12:14 | disposition home or self-care (01) ==
LOC: ED 07:04 → AC 08:20 → ICU 13:45 → AC 11-21 11:52
PROVIDERS: Admitting Provider Nurse Practitioner Family; Emergency Provider Emergency Medicine; Referring Provider Emergency Medicine; Visit Provider Nurse Practitioner Family
DX: N30.00 Acute cystitis without hematuria (principal); R11.2 Nausea with vomiting, unspecified; R10.32 Left lower quadrant pain; R19.7 Diarrhea, unspecified; S70.361A Insect bite (nonvenomous), right thigh, initial encounter; E86.0 Dehydration; R00.0 Tachycardia, unspecified; K80.20 Calculus of gallbladder without cholecystitis without obstruction; N20.0 Calculus of kidney; F17.210 Nicotine dependence, cigarettes, uncomplicated; F12.90 Cannabis use, unspecified, uncomplicated; Z20.822 Contact with and (suspected) exposure to COVID-19
CPT/HCPCS: 36415; 74177; 76705; 80053; 81003; 81025; 85025; 87635; 87797; 90471; 90656; 96361; 96374; 96375; 96376; 99284; 99285; C9803; G0378; J1885; J2405; Q2038; Q9967

== ENCOUNTER → 2020-12-25 10:42 | Outpatient (CLI) | payer OTHER, MEDICAID, SELFPAY ==
[2020-11-20 08:25] VITALS: BMI 27.1
--- NOTE | 2020-12-25 10:44 | DI.RAD.S_ITS ---
PROCEDURE: XR CERVICAL SPINE 2V OR 3V INDICATIONS: Chronic neck pain TECHNIQUE: 3 view(s) of the cervical spine were acquired. COMPARISON: None. FINDINGS: Bones: No fractures or dislocations to the T1 level. The lateral masses of C1 appear intact on the odontoid view. No suspicious bony lesions. Straightening of cervical lordosis which may be due to patient positioning and/or concurrent muscle spasms. Soft tissues: No prevertebral soft tissue swelling. IMPRESSION: Cervical spine without acute fracture or dislocation. Mild straightening of normal cervical lordosis likely related to positioning and/or concurrent muscle spasms. Dictated by: Jia Uribe M.D. on 12/25/2020 at 11:16 Approved by: Jai Uribe M.D. on 12/25/2020 at 12:09
[2020-12-25 12:17] LABS: Hemoglobin A1C% w Est Avg Glu 5.3 % (4.0-6.0)
[2020-12-25 12:23] LABS: Alanine Aminotransferase 18 IU/L (<35); Albumin 4.2 g/dL (3.5-5.0); Albumin Globulin Ratio 1.4 (1.0-2.8); Alkaline Phosphatase 90 U/L (38-126); Aspartate Aminotransferase 27 IU/L (14-36); Bilirubin Total 0.4 mg/dL (0.2-1.3); Blood Urea Nitrogen 12 mg/dL (7-17); Calcium 8.9 mg/dL (8.4-10.2); Carbon Dioxide 20 mmol/L (22-32); Chloride 108 mmol/L (98-107); Cholesterol 135 mg/dL (140-199); Estimated Glomerular Filt Rate > 60.0 mL/min (>60); Glucose 100 mg/dL (70-100); HDL Cholesterol 46 mg/dL (40-60); HEMOLYSIS < 15 (0-50); LDL Cholesterol Calculated 57 mg/dL (<100); Potassium 4.5 mmol/L (3.4-5.1); Sodium 136 mmol/L (137-145); Total Protein 7.2 g/dL (6.3-8.2); Triglycerides 159 mg/dL (35-150)
[2020-12-25 12:50] LABS: TSH w/ Reflex to FT4 0.81 uIU/mL (0.47-4.68)
== END ==
PROVIDERS: PCP Family Medicine; Referring Provider Family Medicine; Visit Provider Family Medicine
DX: M54.2 Cervicalgia (principal); R73.9 Hyperglycemia, unspecified
CPT/HCPCS: 36415; 72040; 80053; 80061; 83036; 84443

== ENCOUNTER 2021-08-04 22:29 | Observation (INO) | payer OTHER, MEDICAID, SELFPAY ==
[2020-11-20 08:25] VITALS: BMI 27.1
[2021-08-04 22:37] VITALS: BP 147/92; PULSE 125; RESP 20; TEMP 37.9; O2SAT 98; BMI 30.9
--- NOTE | 2021-08-04 23:05 | DI.US.S_ITS ---
PROCEDURE: US ABDOMEN LIMITED INDICATIONS: PAIN. KNOWN GALLSTONES. TECHNIQUE: Real-time scanning was performed of the abdominal and retroperitoneal organs, with image documentation. COMPARISON: [facility], , US ABDOMEN LIMITED, 11/20/2020, 6:44. FINDINGS: Liver: Liver is normal in size. Increased liver parenchymal echotexture is seen. No discrete hepatic lesion. Gallbladder: Multiple stones are noted within gallbladder lumen with the largest 1 seen near neck of gallbladder measures 1.4 x 1.1 cm in size. There is gallbladder wall thickening measures up to 4 mm in thickness. No pericholecystic fluid. Positive sonographic Harman sign is noted. Biliary ducts: Intrahepatic bile ducts are non-dilated. Extrahepatic bile duct caliber measures 4.9 mm. Normal is 6-7 mm or less in diameter, or 10 mm or less post-cholecystectomy. Pancreas: Visualized portions of the pancreas are sonographically normal. IMPRESSION: 1. Cholelithiasis with sonographic evidence of acute cholecystitis. 2. No biliary ductal dilatation. 3. Hepatic steatosis. Dictated by: Josr Lincoln M.D. on 08/05/2021 at 0:04 Approved by: Josr Lincoln M.D. on 08/05/2021 at 0:05
[2021-08-04 23:13] LABS: COVID19 -Nasal RAPID Negative (Negative)
[2021-08-04 23:40] LABS: Add Manual Diff / Slide Review NO; Basophils Absolute Auto 0 /uL (0-100); Basophils Percent Auto 0.2 % (0-2); Eosinophils Absolute Auto 0 /uL (0-450); Eosinophils Percent Auto 0.1 % (2-4); Hematocrit 42.2 % (36-46); Hemoglobin 14.7 g/dL (12.0-16.0); Lymphocytes Absolute Auto 400 /uL (1100-4500); Lymphocytes Percent Auto 5.3 % (25-40); Mean Corpuscular HGB Conc 34.7 % (30-36); Mean Corpuscular Hemoglobin 31.2 PG (26-34); Mean Corpuscular Volume 89.8 fL (80-100); Monocytes Absolute Auto 300 /uL (0-900); Monocytes Percent Auto 3.6 % (3-14); Neutrophils Absolute Auto 7300 /uL (1500-7000); Neutrophils Percent Auto 90.8 % (50-75); Platelet Count 176 X10^3/uL (150-400); Red Cell Distribution Width 12.7 % (11.6-14.8)
[2021-08-04 23:48] LABS: Alanine Aminotransferase 66 IU/L (<35); Albumin 4.2 g/dL (3.5-5.0); Albumin Globulin Ratio 1.4 (1.0-2.8); Alkaline Phosphatase 93 U/L (38-126); Aspartate Aminotransferase 50 IU/L (14-36); BUN Creatinine Ratio 14.5 (6-22); Bilirubin Total 0.4 mg/dL (0.2-1.3); Blood Urea Nitrogen 9 mg/dL (7-17); Calcium 8.6 mg/dL (8.4-10.2); Carbon Dioxide 21 mmol/L (22-32); Chloride 108 mmol/L (98-107); Estimated Glomerular Filt Rate > 60.0 mL/min (>60); Glucose 105 mg/dL (70-100); HEMOLYSIS < 15 (0-50); Lipase 84 U/L (23-300); Potassium 3.9 mmol/L (3.4-5.1); Sodium 135 mmol/L (137-145); Total Protein 7.2 g/dL (6.3-8.2)
[2021-08-04] MEDS: KETOROLAC 30 MG/ML VIAL 15 MG IV (23:56)
[2021-08-05] VITALS (23 sets, daily range): BP systolic 113–157; BP diastolic 78–110; PULSE 88–124; RESP 15–22; TEMP 36.6–37.5; O2SAT 95–100; BMI 30.9
--- NOTE | 2021-08-05 | PATH_ITS ---
[facility] Accession Number: [id number] . 01 Material submitted: . gallbladder - GALLBLADDER . 02 Diagnosis: Gallbladder, Cholecystectomy: Chronic cholecystitis, cholesterolosis, and cholelithiasis. MRV 08/08/2021 1011 Local . 02 Electronically signed: . Nereyda Marrufo MD, Pathologist NPI- [id number] . 01 Gross description: . The specimen is received in formalin, labeled with the patient's name and gallbladder, and consists of a 6.0 x 3.0 x 1.5 cm gallbladder with a 0.5 cm in diameter stapled cystic duct margin. The serosa is pink-boone and smooth. The gallbladder is opened to reveal four round yellow to green bosselated choleliths ranging in size from 0.2 to 0.6 cm in diameter. The gallbladder mucosa is green-boone and smooth. Masses, including polyps, are not identified. Wall thickness measures 0.3 cm. Duct Layer sections are submitted. . Summary of Sections: A1: En face cystic duct margin, inked blue, 3 pieces. A2: Duct Layer sections of the gallbladder, 3 pieces. ([id number]) /MRV 08/07/2021 1235 Local . 02 Pathologist provided ICD-10: K81.1, K80.60 . 02 CPT . 612595 Performed at: 01 [facility] [address] [place] [address], [place], [place] [id number] MD Angel Loyd MD Phone: [phone] Performed at: 02 [facility] [address] [place], [place] [id number] MD Jamila Allen MD Phone: [phone]
--- NOTE | 2021-08-05 00:26 | ED.ABDPAIN ---
HPI - Abdominal Pain General Chief Complaint: Abdominal Pain Stated Complaint: gall stone issues Time Seen by Provider: 08/04/21 23:47 Source: patient Mode of arrival: Ambulatory History of Present Illness HPI narrative: Patient is a 30-year-old female who has known gallbladder issues presenting today with increasing right upper quadrant pain, persistent vomiting and fever. She says that she has has some intermittent pain and nausea ongoing for about the last 2-3 weeks. Today she had fever and a few episodes of vomiting. She is having intense right upper quadrant pain as well. Also some mild lower abdominal pain. In she denies any painful or frequent urination. No flank pain no other no diarrhea. Related Data Previous Rx's Medication Instructions Recorded nicotine 7 mg/24 hr daily 1 patch TRANSDERMAL Q24H #14 ea 12/11/20 transdermal patch ondansetron 4 mg disintegrating 4 mg PO Q6H PRN #14 tab 01/09/21 tablet Allergies Allergy/AdvReac Type Severity Reaction Status Date / Time No Known Drug Allergies Allergy Verified 01/09/21 16:10 Review of Systems Review of Systems Narrative: GENERAL: + fever, see HPI Denies chills, fatigue, malaise, travel HEENT: Denies sinus pain, ear pain, sore throat, difficulty swallowing, neck pain RESPIRATORY: Denies dyspnea, cough, wheezing, hemoptysis, sputum. CARDIOVASCULAR: Denies chest pain, palpitations, orthopnea, edema GASTROINTESTINAL: See HPI : Denies dysuria, frequency, incontinence, hematuria, urinary retention, flank pain. MUSCULOSKELETAL: Denies weakness, joint pain, or bony pain SKIN: No rash, no erythema, no pruritus NEUROLOGIC: Denies weakness, dizziness, headache, numbness, change in speech, confusion PSYCHIATRIC: No concerning psychosocial issues. 12 point review of systems is negative except for those stated above and HPI Patient History Medical History Gallstones Hyperglycemia Patient denies medical problems Family History Other Adopted Social History household members: family Smoking Status: Current every day smoker Smoking Status: Current every day smoker tobacco type: cigarettes alcohol intake frequency: holidays/special occasions only Substance Use Type: marijuana Exam Initial Vital Signs Initial Vital Signs: Vital Signs Temperature 100.3 F H 08/04/21 22:37 Pulse Rate 125 H 08/04/21 22:37 Respiratory Rate 20 08/04/21 22:37 Blood Pressure 147/92 H 08/04/21 22:37 Pulse Oximetry 98 08/04/21 22:37 GENERAL: Alert 50-year-old female appears comfortable tearful HEENT: Head atraumatic,EOMI, pupils reactive, face symmetric, moist mucous membranes CARDIOVASCULAR: Regular rate and rhythm without murmurs, rubs or gallops. RESPIRATORY: Breath sounds equal bilaterally, no wheezes rales or rhonchi. ABDOMEN: Soft, tender right upper quadrant positive Harman sign mild lower right lower quadrant pain as well no left-sided : No CVA tenderness EXTREMITIES: Normal range of motion, no clubbing or edema. Neurovascularly intact NEUROLOGICAL: Alert and oriented x4.Normal gait and speech. SKIN: Warm, dry, no laceration, no petechiae, no rashes or lesions. Course Orders Ordered: ED Orders 08/04/21 22:50 COVID19 -Nasal swab/Pre-Proc Stat 08/04/21 23:05 US abdomen limited Stat 08/04/21 23:22 Complete Blood Count AUTO DIFF Stat Comprehensive Metabolic Panel Stat Lipase Stat 08/05/21 00:32 Test Serum,Qual Stat 08/05/21 00:33 CT abdomen pelvis w con Stat Lactate (Lactic Acid) Stat Acetaminophen (Acetaminophen 325 Mg Tablet) 650 mg PO Q6HR PRN PRN Reason: Fever/Mild Pain (1-3) Hydrocodone Bitart/Acetaminophen (Hydrocodone/Acet 5/325 Tablet) 2 tab PO Q6HR ERVIN Gabapentin (Gabapentin 300 Mg Capsule) 300 mg PO BID ERVIN Last Admin: 08/05/21 02:54 Dose: Not Given Documented by: XENA Lactated Ringer's (Lactated Ringers) 1,000 mls @ 100 mls/hr IV CONT ERVIN Last Admin: 08/05/21 02:38 Dose: 100 mls/hr Documented by: XENA Ketorolac Tromethamine (Ketorolac 30 Mg/Ml Vial) 30 mg IV Q6HR PRN PRN Reason: Pain, Severe (7-10) Stop: 08/10/21 02:00 Naloxone HCl (Naloxone 0.4 Mg/Ml Vial) 0.2 mg IV Q2MIN PRN PRN Reason: Opiate Reversal Ondansetron HCl (Ondansetron 4 Mg/2 Ml Inj) 4 mg IV Q6HR ERVIN Last Admin: 08/05/21 05:02 Dose: 4 mg Documented by: XENA Discontinued Medications Sodium Chloride (Normal Saline 0.9%) 1,000 mls @ 1,000 mls/hr IV BOLUS ONE Stop: 08/05/21 01:31 Last Infusion: 08/05/21 01:58 Dose: 0 mls/hr Documented by: Admin: 08/05/21 00:49 Dose: 1,000 mls/hr Documented by: PEACE Piperacillin Sod/Tazobactam (Sod 4.5 gm/ Sodium Chloride) 100 mls @ 200 mls/hr IV NOW ONE Stop: 08/05/21 00:34 Last Infusion: 08/05/21 01:58 Dose: 0 mls/hr Documented by: Admin: 08/05/21 00:49 Dose: 200 mls/hr Documented by: PEACE Ketorolac Tromethamine (Ketorolac 30 Mg/Ml Vial) 15 mg IV NOW ONE Stop: 08/04/21 23:48 Last Admin: 08/04/21 23:56 Dose: 15 mg Documented by: HAMILTON Ondansetron HCl (Ondansetron 4 Mg/2 Ml Inj) 4 mg IV NOW ONE Stop: 08/05/21 00:33 Last Admin: 08/05/21 00:49 Dose: 4 mg Documented by: PEACE Scopolamine (Scopolamine 1 Patch) 1 patch TOP NOW ONE Stop: 08/05/21 01:59 Last Admin: 08/05/21 02:38 Dose: 1 patch Documented by: XENA Vital Signs Vital signs: Vital Signs - 8 hr 08/04/21 22:37 Temperature 100.3 F H Pulse Rate 125 H Respiratory Rate 20 Blood Pressure 147/92 H Pulse Oximetry 98 MDM - Abdominal Pain Lab Data Result diagrams: 08/04/21 23:22 08/04/21 23:22 Labs: Lab Results 08/04/21 08/04/21 08/04/21 Range/Units 22:50 23:22 23:22 WBC 8.0 (4.5-11.0) X10^3/uL RBC 4.70 (4.0-5.2) X10^6/uL Hgb 14.7 (12.0-16.0) g/dL Hct 42.2 (36-46) % MCV 89.8 (80-100) fL MCH 31.2 (26-34) PG MCHC 34.7 (30-36) % RDW 12.7 (11.6-14.8) % Plt Count 176 (150-400) X10^3/uL Neut % (Auto) 90.8 H (50-75) % Lymph % (Auto) 5.3 L (25-40) % Morgan % (Auto) 3.6 (3-14) % Eos % (Auto) 0.1 L (2-4) % Baso % (Auto) 0.2 (0-2) % Neut # (Auto) 7300 H (5776-4066) /uL Lymph # (Auto) 400 L (6665-4076) /uL Morgan # (Auto) 300 (0-900) /uL Eos # (Auto) 0 (0-450) /uL Baso # (Auto) 0 (0-100) /uL Sodium 135 L (137-145) mmol/L Potassium 3.9 (3.4-5.1) mmol/L Chloride 108 H (98-107) mmol/L Carbon Dioxide 21 L (22-32) mmol/L BUN 9 (7-17) mg/dL Creatinine 0.62 (0.52-1.04) mg/dL Estimated GFR > 60.0 (>60) mL/min BUN/Creatinine Ratio 14.5 (6-22) Glucose 105 H (70-100) mg/dL Lactate (0.7-2.1) mmol/L Calcium 8.6 (8.4-10.2) mg/dL Total Bilirubin 0.4 (0.2-1.3) mg/dL AST 50 H (14-36) IU/L ALT 66 H (<35) IU/L Alkaline Phosphatase 93 (38-126) U/L Total Protein 7.2 (6.3-8.2) g/dL Albumin 4.2 (3.5-5.0) g/dL Globulin 3.0 (1.7-4.1) g/dL Albumin/Globulin Ratio 1.4 (1.0-2.8) Lipase 84 (23-300) U/L Serum , Qual (Negative) SARS-CoV-2 (PCR) Negative (Negative) 08/04/21 08/04/21 Range/Units 23:22 23:22 WBC (4.5-11.0) X10^3/uL RBC (4.0-5.2) X10^6/uL Hgb (12.0-16.0) g/dL Hct (36-46) % MCV (80-100) fL MCH (26-34) PG MCHC (30-36) % RDW (11.6-14.8) % Plt Count (150-400) X10^3/uL Neut % (Auto) (50-75) % Lymph % (Auto) (25-40) % Morgan % (Auto) (3-14) % Eos % (Auto) (2-4) % Baso % (Auto) (0-2) % Neut # (Auto) (1133-9938) /uL Lymph # (Auto) (5044-5712) /uL Morgan # (Auto) (0-900) /uL Eos # (Auto) (0-450) /uL Baso # (Auto) (0-100) /uL Sodium (137-145) mmol/L Potassium (3.4-5.1) mmol/L Chloride (98-107) mmol/L Carbon Dioxide (22-32) mmol/L BUN (7-17) mg/dL Creatinine (0.52-1.04) mg/dL Estimated GFR (>60) mL/min BUN/Creatinine Ratio (6-22) Glucose (70-100) mg/dL Lactate 0.6 L (0.7-2.1) mmol/L Calcium (8.4-10.2) mg/dL Total Bilirubin (0.2-1.3) mg/dL AST (14-36) IU/L ALT (<35) IU/L Alkaline Phosphatase (38-126) U/L Total Protein (6.3-8.2) g/dL Albumin (3.5-5.0) g/dL Globulin (1.7-4.1) g/dL Albumin/Globulin Ratio (1.0-2.8) Lipase (23-300) U/L Serum , Qual Negative (Negative) SARS-CoV-2 (PCR) (Negative) Imaging Data US - abdomen: Radiologist's Impression: PROCEDURE:? US ABDOMEN LIMITED ? INDICATIONS:? PAIN. KNOWN GALLSTONES. ? TECHNIQUE:? Real-time scanning was performed of the abdominal and retroperitoneal organs, with image documentation.? ? COMPARISON:? [facility], US, US ABDOMEN LIMITED, 11/20/2020, 6:44. ? FINDINGS:? ? Liver:? Liver is normal in size.? Increased liver parenchymal echotexture is seen.? No discrete hepatic lesion. ? Gallbladder:? Multiple stones are noted within gallbladder lumen with the largest 1 seen near neck of gallbladder measures 1.4 x 1.1 cm in size.? There is gallbladder wall thickening measures up to 4 mm in thickness.? No pericholecystic fluid.? Positive sonographic Harman sign is noted. ? Biliary ducts:? Intrahepatic bile ducts are non-dilated.? Extrahepatic bile duct caliber measures 4.9 mm.? Normal is 6-7 mm or less in diameter, or 10 mm or less post-cholecystectomy.? ? Pancreas:? Visualized portions of the pancreas are sonographically normal.? ? IMPRESSION:? 1. Cholelithiasis with sonographic evidence of acute cholecystitis. 2. No biliary ductal dilatation. 3. Hepatic steatosis.? ? Dictated by: Josr Lincoln M.D. on 08/05/2021 at 0:04 ? ? Approved by: Josr Lincoln M.D. on 08/05/2021 at 0:05 ? CT scan - abdomen/pelvis: Radiologist's Impression: PROCEDURE:? CT ABDOMEN PELVIS W CON ? INDICATIONS:? right upper and lower pain ? TECHNIQUE:? After the administration of intravenous contrast, axial sections acquired from the lung bases to the pubic symphysis.? Coronal and sagittal reformats were performed.? For radiation dose reduction, the following was used:? automated exposure control, adjustment of mA and/or kV according to patient size.? ? COMPARISON:? [facility], CT, CT ABDOMEN PELVIS W CON, 11/20/2020, 4:40. ? FINDINGS:? Image quality:? Excellent.? ? Lung bases:? Dependent atelectasis in posterior aspect of bilateral lung bases are seen.. Heart:? No significant findings. ? ABDOMEN: Liver:? Unremarkable.? ? Gallbladder:? Multiple calcified stones are seen in dependent portion of gallbladder lumen.? There is questionable gallbladder wall thickening.? No definite pericholecystic fluid. Biliary ducts:? Unremarkable.? ? Pancreas:? Unremarkable.? ? Spleen:? Unremarkable.? ? Adrenal Glands:? Unremarkable.? ? Kidneys and Ureters:? Bilateral kidneys are normal in size.? Multiple small bilateral nonobstructing renal calculi are seen measures up to 3 mm in size in left kidney unchanged from prior study.? No hydronephrosis.? No perinephric fat stranding or fluid. ? Stomach and Bowel:? Stomach, small bowel loops, and colon are unremarkable.? Appendix is within normal limits.? Peritoneum:? No abnormal intraperitoneal fluid.? No free air.? ? Ventral Wall: ? No hernias.? Abdominal Nodes:? No retroperitoneal or mesenteric adenopathy by size criteria.? Vessels:? Aorta and inferior vena cava are normal in size.? ? PELVIS: Pelvic Organs:? Left ovarian cyst is seen measures 3.1 x 3 cm in size.? Right adnexa show no gross abnormality.? Uterus is within normal limits. Bladder:? Unremarkable.? ? Pelvic Nodes: No enlarged lymph nodes.? Miscellaneous: No hernias are seen. ? ? ? Bones:? No suspicious bony lesion.? No vertebral body compression fracture. ? ? IMPRESSION:? 1.? Cholelithiasis with suggestion of mild gallbladder wall thickening.? Correlate with recent ultrasound of abdomen finding of positive sonographic Harman sign, finding is suggestive of acute cholecystitis.? No biliary ductal dilatation is seen. 2. No bowel obstruction.? Normal appendix.? No free fluid or free air. 3.? Suggestion of tiny bilateral nonobstructing renal calculi.? No hydronephrosis or hydroureter.? Normal appearing urinary bladder. 4. Suggestion of a left ovarian cyst.? ? ? Dictated by: Josr Lincoln M.D. on 08/05/2021 at 1:29 ? ? Approved by: Josr Lincoln M.D. on 08/05/2021 at 1:34 ? MDM Narrative Medical decision making narrative: Patient has known cholelithiasis with increased pain and fever today. Ultrasound does confirm acute cholecystitis with cholelithiasis. Thickened wall without pericholecystic fluid. She has low-grade fever here of 100.3 no leukocytosis. Mild elevation in liver enzymes but normal bilirubin and lipase. She is quite tender in right upper quadrant but minimally tender in her right lower quadrant. CT does not show any abnormality with appendix but does confirm acute cholecystitis. She is given [address] Finley is updated patient's symptoms test results and have placed accepts. Discharge Plan Departure Patient Disposition: Admitted as Observation Clinical Impression: Acute cholecystitis, Cholelithiasis Admit Date/Time: 08/05/21 01:54 Admit Provider: Maeve Finley
--- NOTE | 2021-08-05 00:33 | DI.CT.S_ITS ---
PROCEDURE: CT ABDOMEN PELVIS W CON INDICATIONS: right upper and lower pain TECHNIQUE: After the administration of intravenous contrast, axial sections acquired from the lung bases to the pubic symphysis. Coronal and sagittal reformats were performed. For radiation dose reduction, the following was used: automated exposure control, adjustment of mA and/or kV according to patient size. COMPARISON: [facility], CT, CT ABDOMEN PELVIS W CON, 11/20/2020, 4:40. FINDINGS: Image quality: Excellent. Lung bases: Dependent atelectasis in posterior aspect of bilateral lung bases are seen.. Heart: No significant findings. ABDOMEN: Liver: Unremarkable. Gallbladder: Multiple calcified stones are seen in dependent portion of gallbladder lumen. There is questionable gallbladder wall thickening. No definite pericholecystic fluid. Biliary ducts: Unremarkable. Pancreas: Unremarkable. Spleen: Unremarkable. Adrenal Glands: Unremarkable. Kidneys and Ureters: Bilateral kidneys are normal in size. Multiple small bilateral nonobstructing renal calculi are seen measures up to 3 mm in size in left kidney unchanged from prior study. No hydronephrosis. No perinephric fat stranding or fluid. Stomach and Bowel: Stomach, small bowel loops, and colon are unremarkable. Appendix is within normal limits. Peritoneum: No abnormal intraperitoneal fluid. No free air. Ventral Wall: No hernias. Abdominal Nodes: No retroperitoneal or mesenteric adenopathy by size criteria. Vessels: Aorta and inferior vena cava are normal in size. PELVIS: Pelvic Organs: Left ovarian cyst is seen measures 3.1 x 3 cm in size. Right adnexa show no gross abnormality. Uterus is within normal limits. Bladder: Unremarkable. Pelvic Nodes: No enlarged lymph nodes. Miscellaneous: No hernias are seen. Bones: No suspicious bony lesion. No vertebral body compression fracture. IMPRESSION: 1. Cholelithiasis with suggestion of mild gallbladder wall thickening. Correlate with recent ultrasound of abdomen finding of positive sonographic Harman sign, finding is suggestive of acute cholecystitis. No biliary ductal dilatation is seen. 2. No bowel obstruction. Normal appendix. No free fluid or free air. 3. Suggestion of tiny bilateral nonobstructing renal calculi. No hydronephrosis or hydroureter. Normal appearing urinary bladder. 4. Suggestion of a left ovarian cyst. Dictated by: Josr Lincoln M.D. on 08/05/2021 at 1:29 Approved by: Josr Lincoln M.D. on 08/05/2021 at 1:34
[2021-08-05] MEDS: ONDANSETRON 4 MG/2 ML INJ IV ×4 (00:49→17:19)
[2021-08-05] MEDS: SODIUM CHLORIDE 0.9% 1,000 ML 1000 ML IV (00:49)
[2021-08-05] MEDS: PIPERACILLIN/TAZO 4.5 GM in SODIUM CHLORIDE 0.9% 100 ML 200 ML IV (00:49)
[2021-08-05 00:51] LABS: Lactate (Lactic Acid) 0.6 mmol/L (0.7-2.1)
[2021-08-05 00:59] LABS: Pregnancy Test Serum,Qual Negative (Negative)
--- NOTE | 2021-08-05 02:22 | PC.NURSE ---
report called to CARLOS Salazar
[2021-08-05] MEDS: LACTATED RINGERS 1,000 ML 100 ML IV (02:38)
[2021-08-05] MEDS: SCOPOLAMINE 1 PATCH TOP (02:38)
[2021-08-05 02:59] LABS: COVID19 - ADMIT (NP swab/PCR) Negative (Negative)
[2021-08-05] MEDS: KETOROLAC 30 MG/ML VIAL IV (08:04)
[2021-08-05] MEDS: LACTATED RINGERS 1,000 ML 42 ML IV (09:50)
--- NOTE | 2021-08-05 10:09 | P.HP_ITS ---
History of Present Illness History of Present Illness Date Patient Seen: 08/05/21 Time Patient Seen: 10:09 Date of Onset of Symptoms: 08/04/21 Chief complaint: gall stone issues Narrative: Intermittent attacks that could be related to biliary colic. Yesterday onset of RUQ pain, intense with nausea and emesis, no diarrhea. Work up in ED confirms early acute cholecystitis. Gallstones, no biliary obstruction or findings to suggest common bile duct stones. Patient History Medical History Gallstones Hyperglycemia Patient denies medical problems Family & Social History Family History Other Adopted Social History: household members family Safety & Behavioral: Feels Safe in Current Yes Environment Tobacco & Substance use: Tobacco type cigarettes,cannabis/marijuana Smoking Status Current every day smoker alcohol intake current alcohol intake frequency holiday/special occasion Substance Use Type marijuana Meds Home Medications and Allergies Home Medications Medication Instructions Recorded Confirmed Type nicotine 7 mg/24 hr daily 1 patch TRANSDERMAL Q24H #14 ea 12/11/20 08/05/21 Rx transdermal patch ondansetron 4 mg disintegrating 4 mg PO Q6H PRN #14 tab 01/09/21 08/05/21 Rx tablet Allergies Allergy/AdvReac Type Severity Reaction Status Date / Time No Known Drug Allergies Allergy Verified 01/09/21 16:10 Review of Systems Review of Systems Narrative: severe anxiety about Covid ROS: Yes All systems reviewed with the patient and are negative except as otherwise documented Exam Vital Signs (past 8 hours): - 08/05/21 02:52 08/05/21 07:54 08/05/21 09:53 Temperature 99.0 F 98.9 F 98.8 F Pulse Rate 100 H 98 H 98 H Respiratory Rate 19 17 20 Blood Pressure 136/99 H 140/88 130/81 Pulse Oximetry 98 99 100 Oxygen Delivery Method Room Air Oxygen Flow Rate 0 Const General: cooperative and healthy appearing Nutritional Appearance: average body habitus Orientation: alert and oriented x3 HENMT Head: normocephalic and atraumatic Ears: hearing grossly normal bilaterally Eyes General: appearance normal, both eyes and all related structures Sclera: sclerae normal Neck Neck: trachea midline Chest Chest: normal inspection of the chest Resp Effort & Inspection: normal respiratory effort and able to speak in complete sentences Auscultation: clear to auscultation bilaterally Cardio Rate: regular rate Rhythm: regular rhythm GI Inspection: normal to inspection Other: minimal RUQ pain to palpation Skin General: no rashes or lesions noted, elasticity normal and turgor normal Neuro General: patient oriented x3 and moves all extremities Cognition: normal cognition Motor: muscle tone normal throughout Extrem General: full ROM, no joint enlargement and no pedal edema Psych Appearance: grossly normal Affect: normal affect Judgment: judgment good Objective Labs Result Diagrams: 08/04/21 23:22 08/04/21 23:22 Labs: Laboratory Results - last 24 hr 08/04/21 08/04/21 08/04/21 22:50 23:22 23:22 WBC 8.0 RBC 4.70 Hgb 14.7 Hct 42.2 MCV 89.8 MCH 31.2 MCHC 34.7 RDW 12.7 Plt Count 176 Neut % (Auto) 90.8 H Lymph % (Auto) 5.3 L Roosevelt % (Auto) 3.6 Eos % (Auto) 0.1 L Baso % (Auto) 0.2 Neut # (Auto) 7300 H Lymph # (Auto) 400 L Roosevelt # (Auto) 300 Eos # (Auto) 0 Baso # (Auto) 0 Sodium 135 L Potassium 3.9 Chloride 108 H Carbon Dioxide 21 L BUN 9 Creatinine 0.62 Estimated GFR > 60.0 BUN/Creatinine Ratio 14.5 Glucose 105 H Lactate Calcium 8.6 Total Bilirubin 0.4 AST 50 H ALT 66 H Alkaline Phosphatase 93 Total Protein 7.2 Albumin 4.2 Globulin 3.0 Albumin/Globulin Ratio 1.4 Lipase 84 Serum , Qual SARS-CoV-2 (PCR) Negative 08/04/21 08/04/21 08/05/21 23:22 23:22 02:10 WBC RBC Hgb Hct MCV MCH MCHC RDW Plt Count Neut % (Auto) Lymph % (Auto) Roosevelt % (Auto) Eos % (Auto) Baso % (Auto) Neut # (Auto) Lymph # (Auto) Roosevelt # (Auto) Eos # (Auto) Baso # (Auto) Sodium Potassium Chloride Carbon Dioxide BUN Creatinine Estimated GFR BUN/Creatinine Ratio Glucose Lactate 0.6 L Calcium Total Bilirubin AST ALT Alkaline Phosphatase Total Protein Albumin Globulin Albumin/Globulin Ratio Lipase Serum , Qual Negative SARS-CoV-2 (PCR) Negative Assessment & Plan Assessment & Plan narrative: Early acute cholecystitis with recurrent visits to ED for bilary colic. Lap fanny due to the chance that her disease process may progress and recur. COVID-19 COVID-19 status: Negative Time Spent With Patient Time with patient: 30 to 49 minutes with 50% spent counseling/coordinating care Critical Care time: I spent a total of [] minutes of critical care time on this patient's care today; this time is exclusive of procedural time.
--- NOTE | 2021-08-05 10:48 | SUR.OPER ---
Supine on padded OR bed, head on pillow, arms secured on padded arm boards at <90 degrees abduction, legs uncrossed, safety belt at thigh, tape over blanket over lower legs. Gel pad placed under bilateral lower legs/feet.
[2021-08-05] MEDS: BUPIVACAINE 0.5% W/ EPI (PF) 30 ML VIAL INJ (10:52)
--- NOTE | 2021-08-05 11:23 | PM.OP.1 ---
Operative Date/Time/Diagnoses Date of procedure: 08/05/21 Time of procedure: 11:24 Pre-op diagnosis: acute fanny Post-op diagnosis: same Procedure & Clinicians Procedure: lap fanny Same procedure as scheduled: Yes Indications: acute fanny Surgeon: Maeve Finley Click Yes if Unassisted: Yes Anesthesia Type: General Operative Notes Findings: Acute fanny Closure Type: primary Specimen(s): other (Gallbladder) Prosthetic devices, grafts, tissues, transplants, or devices: 15 Jose Alberto drain Estimated Blood Loss (mL): 50 Blood products transfused: none Procedure in detail: Preop diagnosis: Acute cholecystitis Postop diagnosis: Same Operative procedure: Laparoscopic cholecystectomy Surgeon: Vivian Finley MD Anesthetic: General with ET tube intubation along with local Findings: Acute cholecystitis Procedure: Patient is placed in a supine position. Prepped and draped in sterile fashion to expose her abdomen. Infraumbilical port site was placed using open technique and a 12 mm port. Insufflation began all other ports were placed under direct vision including a 10 mm port in the epigastrium, 2 5 mm ports in the right lateral abdomen. Gallbladder is grasped postop left for exposure. Cystic duct was identified with some difficulty and at 1 point entered into mistakenly. I was able to find a healthy-appearing area that accepted a surgical clip. Clip opposite of the area and transected. Cystic artery identified prior to visualization of the cystic duct, it was clipped once distally twice proximally transected. Gallbladder is taken from the fossa bed electrocautery. With good hemostasis at the operative site. However manipulation of the liver given his weight had minor tear at the falciform that was hemostatic the end of the case. Gallbladder is placed into an Endo-Catch bag and pulled through the infraumbilical port site intact. Drain was placed into the abdomen and brought out through a 5 mm port in the right lateral abdomen, sutured to the skin with 3-0 nylon. I then removed all ports and began closure. Closure was achieved with interrupted 0 Vicryl fascial closure of the infraumbilical port site. Skin closed with a running 4-0 Monocryl. Steri-Strips and sterile dressings were placed. Patient was awakened, extubated, taken to recovery room in stable condition with needle, instrument, sponge counts correct. Blood loss: 50 mL Specimen: Gallbladder Complications: none Post-operative Condition: stable Disposition: PACU
[2021-08-05] MEDS: fentaNYL 100 MCG/2 ML INJ IV (11:25)
[2021-08-05] MEDS: LORazepam 2 MG/ML INJ 0.25 MG IV ×3 (11:32→12:13)
[2021-08-05] MEDS: HYDROMORPHONE 2 MG INJ IV ×2 (11:38→11:52)
[2021-08-05] MEDS: OXYCODONE/ACETAMINOPHEN 5/325 TABLET 1 TAB PO ×2 (12:12→12:53)
--- NOTE | 2021-08-05 12:23 | SUR.PHASEI ---
Patient to PACU with Dr Lao and Lazara Potter. Pt crying in pain, thrashing in bed due to pain. Crying out that she is anxious and it hurts so much, why is it so painful. Se EMAR for pain meds and anti-anxiety meds. Dr Finley to bedside and reports that patient with history of anxiety and recommended use of the Ativan which was ordered. Pt now alternates between sleeping and then awake, crying in pain though more calm, able to take apple sauce and pain pill.
--- NOTE | 2021-08-05 13:06 | SUR.PHASEI ---
Pt calm. Arouses easily to verbal stimuli. Transferred to floor by CARLOS Bales.
--- NOTE | 2021-08-05 13:18 | SUR.PHASEI ---
Patient transferred to room 225 on room air, alert and oriented. Able to sleep, awakens easily to voice. Pain 3/10 and states still anxious but feeling better. SBAr report update at bedside to Deana GONZALEZ and Alexa GONZALEZ. Dressing & CHRISTIANO site clean, dry and intact.
--- NOTE | 2021-08-05 13:28 | SUR.PHASEI ---
1238 SBAR report at bedside to Chichi GONZALEZ.
--- NOTE | 2021-08-05 15:31 | CM.DANOTE ---
DCP Brief Assessment Note Patient is a 30 yo female who was admitted on 08/05/21 for Gallstones. Pt has [employer] and [employer] for insurance and her PCP is Dr. Ritesh Reynolds. EMR was reviewed. Per Surgeon, due to pt's acute cholecystitis and ongoing medical needs, recommending Lap Haydee today. Pt was taken to OR later morning and recently returned to the floor but quite painful and uncomfortable and not very medically appropriate for bedside assessment at this time. Pt resides in [place] with her family and son and is typically independent with ADL's. Plan: SW to follow for pt to progress and tolerate diet and ambulate to confirm safe d/c home when medically stable and bedside discussion. MARTIN Gore
[2021-08-05] MEDS: HYDROCODONE/ACET 5/325 TABLET 2 TAB PO (17:19)
[2021-08-05] MEDS: OXYCODONE IR 5 MG TABLET 10 MG PO (20:50)
[2021-08-05] MEDS: GABAPENTIN 300 MG CAPSULE PO (21:00)
[2021-08-05] MEDS: ALPRAZolam 0.5 MG TABLET PO (21:00)
[2021-08-06] MEDS: ONDANSETRON 4 MG/2 ML INJ IV ×5 (00:14→23:22)
[2021-08-06 00:16] VITALS: BP 141/94; PULSE 94; RESP 19; TEMP 37.2; O2SAT 97
[2021-08-06] MEDS: OXYCODONE IR 5 MG TABLET 10 MG PO ×3 (01:09→17:39)
[2021-08-06] MEDS: ALPRAZolam 0.5 MG TABLET PO ×3 (02:13→20:52)
[2021-08-06] MEDS: OXYCODONE IR 5 MG TABLET 15 MG PO (04:45)
[2021-08-06 04:55] LABS: Add Manual Diff / Slide Review NO; Basophils Absolute Auto 0 /uL (0-100); Basophils Percent Auto 0.2 % (0-2); Eosinophils Absolute Auto 0 /uL (0-450); Hemoglobin 14.1 g/dL (12.0-16.0); Lymphocytes Absolute Auto 700 /uL (1100-4500); Lymphocytes Percent Auto 7.1 % (25-40); Mean Corpuscular HGB Conc 34.5 % (30-36); Mean Corpuscular Hemoglobin 31.2 PG (26-34); Mean Corpuscular Volume 90.4 fL (80-100); Monocytes Absolute Auto 400 /uL (0-900); Monocytes Percent Auto 4.3 % (3-14); Neutrophils Absolute Auto 8200 /uL (1500-7000); Neutrophils Percent Auto 88.4 % (50-75); Platelet Count 149 X10^3/uL (150-400); Red Blood Cell Count 4.53 X10^6/uL (4.0-5.2); Red Cell Distribution Width 12.7 % (11.6-14.8); White Blood Cell Count 9.3 X10^3/uL (4.5-11.0)
[2021-08-06 05:05] LABS: Alanine Aminotransferase 95 IU/L (<35); Albumin 3.6 g/dL (3.5-5.0); Albumin Globulin Ratio 1.2 (1.0-2.8); Alkaline Phosphatase 75 U/L (38-126); Aspartate Aminotransferase 94 IU/L (14-36); BUN Creatinine Ratio 16.9 (6-22); Bilirubin Total 0.5 mg/dL (0.2-1.3); Blood Urea Nitrogen 10 mg/dL (7-17); Calcium 8.1 mg/dL (8.4-10.2); Carbon Dioxide 22 mmol/L (22-32); Chloride 108 mmol/L (98-107); Estimated Glomerular Filt Rate > 60.0 mL/min (>60); Globulin 2.9 g/dL (1.7-4.1); Glucose 112 mg/dL (70-100); HEMOLYSIS 36 (0-50); Potassium 4.2 mmol/L (3.4-5.1); Sodium 134 mmol/L (137-145); Total Protein 6.5 g/dL (6.3-8.2)
[2021-08-06] MEDS: SODIUM CHLORIDE 0.9% 1,000 ML 1000 ML IV (07:42)
[2021-08-06] MEDS: GABAPENTIN 300 MG CAPSULE PO ×2 (09:07→20:19)
[2021-08-06] MEDS: SCOPOLAMINE 1 PATCH TOP (10:50)
--- NOTE | 2021-08-06 10:54 | PC.NURSE ---
Scopalamine patch fell off Pt so a new one was placed behind Pt's left ear.
[2021-08-06 11:55] VITALS: BP 153/105; PULSE 90; RESP 15; TEMP 36.3; O2SAT 95
--- NOTE | 2021-08-06 12:30 | P.PN_ITS ---
Subjective Subjective Date Patient Seen: 08/06/21 Time Patient Seen: 12:31 Interval history: Acute fanny POD#1. Drain place intraoperative due to degree of difficulty. C/o pain and anorexia Exam Vital Signs (past 8 hours): - 08/06/21 11:55 Temperature 97.3 F L Pulse Rate 90 Respiratory Rate 15 Blood Pressure 153/105 H Pulse Oximetry 95 Oxygen Delivery Method Room Air Oxygen Flow Rate 0 Narrative Exam Narrative: drain is minimal today, no bile. Abdomen is soft with drain site tenderness. Objective Labs Result Diagrams: 08/06/21 04:25 08/06/21 04:25 Labs: Laboratory Results - last 24 hr 08/06/21 08/06/21 04:25 04:25 WBC 9.3 RBC 4.53 Hgb 14.1 Hct 41.0 MCV 90.4 MCH 31.2 MCHC 34.5 RDW 12.7 Plt Count 149 L Neut % (Auto) 88.4 H Lymph % (Auto) 7.1 L [place] % (Auto) 4.3 Eos % (Auto) 0.0 L Baso % (Auto) 0.2 Neut # (Auto) 8200 H Lymph # (Auto) 700 L [place] # (Auto) 400 Eos # (Auto) 0 Baso # (Auto) 0 Sodium 134 L Potassium 4.2 Chloride 108 H Carbon Dioxide 22 BUN 10 Creatinine 0.59 Estimated GFR > 60.0 BUN/Creatinine Ratio 16.9 Glucose 112 H Calcium 8.1 L Total Bilirubin 0.5 AST 94 H ALT 95 H Alkaline Phosphatase 75 Total Protein 6.5 Albumin 3.6 Globulin 2.9 Albumin/Globulin Ratio 1.2 [facility] Medical History Gallstones Hyperglycemia Patient denies medical problems Family History Other Adopted Social History household members: family Smoking Status: Current every day smoker alcohol intake: current Assessment & Plan Post-op Postoperative Procedures: Procedures Operation Date: 08/05/21 10:15 Actual Procedure Side Surgeon p Laparoscopic Cholecystectomy Not Applicable Maeve Finley MD Postoperative day: 1 Postoperative status: doing well Postoperative plan: routine post-op care Postoperative plan narrative: remove drain and advance diet. Time Spent With Patient Time with patient: 15-24 minutes
[2021-08-06 17:44] VITALS: BP 143/95
[2021-08-06 20:10] VITALS: BP 148/101; PULSE 116; RESP 18; TEMP 37.1; O2SAT 95
[2021-08-06] MEDS: SODIUM CHLORIDE 0.9% FLUSH 10 ML IV ×2 (21:00→23:22)
--- NOTE | 2021-08-06 22:11 | PC.NURSE ---
2049 C/O anxiety, but denies any pain. VS B/P 148/101 & HR. 116, requested Xanax 0.5 mg. PO admin. Will cont. POC & monitor.
[2021-08-07] VITALS (8 sets, daily range): BP systolic 138–163; BP diastolic 95–109; PULSE 95–110; RESP 16–20; TEMP 37–37.9; O2SAT 95–97
[2021-08-07] MEDS: OXYCODONE IR 5 MG TABLET 10 MG PO ×4 (03:32→20:27)
[2021-08-07] MEDS: ACETAMINOPHEN 325 MG TABLET 650 MG PO (03:37)
[2021-08-07] MEDS: SODIUM CHLORIDE 0.9% FLUSH 10 ML IV ×4 (05:12→23:58)
[2021-08-07] MEDS: ONDANSETRON 4 MG/2 ML INJ IV ×3 (05:12→23:58)
[2021-08-07 08:37] LABS: Add Manual Diff / Slide Review NO; Basophils Absolute Auto 0 /uL (0-100); Basophils Percent Auto 0.4 % (0-2); Eosinophils Absolute Auto 0 /uL (0-450); Hematocrit 40.8 % (36-46); Hemoglobin 14.3 g/dL (12.0-16.0); Lymphocytes Absolute Auto 900 /uL (1100-4500); Lymphocytes Percent Auto 16.1 % (25-40); Mean Corpuscular Hemoglobin 31.4 PG (26-34); Mean Corpuscular Volume 89.8 fL (80-100); Monocytes Absolute Auto 500 /uL (0-900); Monocytes Percent Auto 8.6 % (3-14); Neutrophils Absolute Auto 4300 /uL (1500-7000); Neutrophils Percent Auto 74.9 % (50-75); Platelet Count 135 X10^3/uL (150-400); Red Blood Cell Count 4.55 X10^6/uL (4.0-5.2); Red Cell Distribution Width 12.5 % (11.6-14.8); White Blood Cell Count 5.8 X10^3/uL (4.5-11.0)
[2021-08-07 08:45] LABS: Alanine Aminotransferase 78 IU/L (<35); Albumin 3.5 g/dL (3.5-5.0); Albumin Globulin Ratio 1.3 (1.0-2.8); Alkaline Phosphatase 82 U/L (38-126); Aspartate Aminotransferase 55 IU/L (14-36); Bilirubin Total 0.7 mg/dL (0.2-1.3); Blood Urea Nitrogen 9 mg/dL (7-17); Calcium 7.9 mg/dL (8.4-10.2); Carbon Dioxide 25 mmol/L (22-32); Chloride 105 mmol/L (98-107); Estimated Glomerular Filt Rate > 60.0 mL/min (>60); Globulin 2.8 g/dL (1.7-4.1); Glucose 99 mg/dL (70-100); HEMOLYSIS < 15 (0-50); Potassium 3.7 mmol/L (3.4-5.1); Sodium 135 mmol/L (137-145); Total Protein 6.3 g/dL (6.3-8.2)
--- NOTE | 2021-08-07 08:49 | DI.US.S_ITS ---
PROCEDURE: US ABDOMEN LIMITED INDICATIONS: EVALUATE FOR BILOMA TECHNIQUE: Real-time focused scanning was performed of the abdomen, with image documentation. COMPARISON: [facility], , US ABDOMEN LIMITED, 08/04/2021, 23:35. FINDINGS: The gallbladder has been removed. A small amount of fluid can be seen within the gallbladder fossa, that measures 5 x 18 x 5 mm. Free fluid can be seen within the right lower quadrant and within the left lower quadrant. There is also a small amount of fluid seen between the liver and the diaphragm. There is no biliary dilatation, the common bile duct measures 6 mm. Overall scan quality is limited by bowel gas. IMPRESSION: There is a small amount of free fluid seen within the gallbladder fossa as well as a small amount more generalized fluid within the abdomen, including within the right lower quadrant, the left lower quadrant, and adjacent to the liver. Differential diagnosis includes bile leak, although differential diagnosis also includes benign postoperative fluid. If it would be helpful for clinical management decision making in this patient with this given history, please consider a dedicated HIDA scan for further evaluation. Dictated by: Nacho Gonzalez M.D. on 08/07/2021 at 14:25 Approved by: Nacho Gonzalez M.D. on 08/07/2021 at 14:27
--- NOTE | 2021-08-07 08:51 | P.PN_ITS ---
Subjective Subjective Date Patient Seen: 08/07/21 Time Patient Seen: 08:51 Exam Vital Signs (past 8 hours): - 08/07/21 03:37 08/07/21 04:05 08/07/21 04:07 Temperature 100.3 F H 98.8 F 98.8 F Pulse Rate Respiratory Rate Blood Pressure Pulse Oximetry 08/07/21 04:48 08/07/21 05:20 08/07/21 07:48 Temperature 100.3 F H 99.0 F Pulse Rate 110 H 98 H 104 H Respiratory Rate 16 18 Blood Pressure 163/107 H 138/95 H 142/95 H Pulse Oximetry 96 97 Oxygen Delivery Method Room Air Oxygen Flow Rate 0 Narrative Exam Narrative: Abdominal pain slightly improved. fever over night. has not been using ICS or ambulating. abdomen is distended w RUQ tenderness. Objective Labs Result Diagrams: 08/07/21 08:00 08/07/21 08:00 Labs: Laboratory Results - last 24 hr 08/07/21 08/07/21 08:00 08:00 WBC 5.8 RBC 4.55 Hgb 14.3 Hct 40.8 MCV 89.8 MCH 31.4 MCHC 35.0 RDW 12.5 Plt Count 135 L Neut % (Auto) 74.9 Lymph % (Auto) 16.1 L [place] % (Auto) 8.6 Eos % (Auto) 0.0 L Baso % (Auto) 0.4 Neut # (Auto) 4300 Lymph # (Auto) 900 L [place] # (Auto) 500 Eos # (Auto) 0 Baso # (Auto) 0 Sodium 135 L Potassium 3.7 Chloride 105 Carbon Dioxide 25 BUN 9 Creatinine 0.69 Estimated GFR > 60.0 BUN/Creatinine Ratio 13.0 Glucose 99 Calcium 7.9 L Total Bilirubin 0.7 AST 55 H ALT 78 H Alkaline Phosphatase 82 Total Protein 6.3 Albumin 3.5 Globulin 2.8 Albumin/Globulin Ratio 1.3 PFSH Medical History Gallstones Hyperglycemia Patient denies medical problems Family History Other Adopted Social History household members: family Smoking Status: Current every day smoker alcohol intake: current Assessment & Plan Assessment & Plan narrative: Difficult to evaluate due to extreme anxiety. Fever most likely due to shallow breathing. Tachy due to fever? pain? anxiety? or a complication?? Labs are normal to improving Main concern is bile leak give the decreased integrity of her cystic duct Plan: US RUQ to see if fluid has reaccumulated. HIDA scan if appropriate. Discharge home if work up is negative Time Spent With Patient Critical Care time: I spent a total of [] minutes of critical care time on this patient's care today; this time is exclusive of procedural time.
[2021-08-07] MEDS: GABAPENTIN 300 MG CAPSULE PO ×2 (09:50→20:27)
[2021-08-07] MEDS: ALPRAZolam 0.5 MG TABLET PO (13:55)
--- NOTE | 2021-08-07 17:37 | PC.NURSE ---
Pt sleeping this morning, awakened easily, A&Ox3, VSS with low grade temp and slight tachycardia. She expresses some anxiety about relationship with her mother and caring for her daughter. She states pain is increased with movement and requests to transfer to bsc only and back to bed. She is medicated with prn zofran for mild nausea, no vomiting today. Abdomen is soft and tender 4-8/10 with hypoactive BS x4. She burps this a.m. and finally passes a small amount of gas this afternoon. No BM today. She is given xanax prn for increased BP with good effect, sleeping this afternoon. She voids x2 350cc verna colored urine. Encouraged and offered to drink more fluids. She tolerates soup and oatmeal today. MD Finley notified of U/S results, per patient she is requesting to discharge tomorrow.
[2021-08-08] MEDS: OXYCODONE IR 5 MG TABLET 10 MG PO ×4 (00:05→15:01)
[2021-08-08 04:00] VITALS: BP 155/105; PULSE 99; RESP 18; TEMP 36.8; O2SAT 95
[2021-08-08] MEDS: SODIUM CHLORIDE 0.9% FLUSH 10 ML IV ×2 (05:11→09:39)
[2021-08-08] MEDS: ONDANSETRON 4 MG/2 ML INJ IV ×2 (05:11→11:46)
[2021-08-08 09:08] VITALS: BP 159/111; PULSE 105; RESP 16; TEMP 36.6; O2SAT 96
[2021-08-08] MEDS: GABAPENTIN 300 MG CAPSULE PO (09:38)
--- NOTE | 2021-08-08 11:57 | PM.DS.1 ---
History of Present Illness History of Present Illness Chief complaint: gall stone issues Discharge Providers Provider Date of admission: 08/05/21 01:54 Discharge Date: 08/08/21 Primary care physician: Ritesh Reynolds MD Consults: 08/08/21 11:51 Consult to Physical Therapy Evaluate & Treat Comment: Patient stating not feeling safe without FWW Physician Instructions: Evaluate and Treat Discharge provider: Glenn Pearl MD Summary Hospital Course Discharge Diagnosis: Status post laparoscopic cholecystectomy Hospital Course: The patient underwent a laparoscopic cholecystectomy by Dr. Finley on August 05, 2021. She had some anxiety and discomfort following the surgery but she eventually was better and able the go home on 08/08/2021. Exam Vital Signs (past 8 hours): - 08/08/21 04:00 08/08/21 09:08 Temperature 98.2 F 98 F Pulse Rate 99 H 105 H Respiratory Rate 18 16 Blood Pressure 155/105 H 159/111 H Pulse Oximetry 95 96 Oxygen Delivery Method Room Air Oxygen Flow Rate 0 Objective Labs Result Diagrams: 08/07/21 08:00 08/07/21 08:00 [facility] Medical History (Updated 08/07/21 @ 09:00 by Maeve Finley MD) Gallstones Hyperglycemia Patient denies medical problems Urinary tract infection Family History Other Adopted Social History household members: family Smoking Status: Current every day smoker alcohol intake: current Discharge Plan Discharge Plan Patient Disposition: Home Provider Discharge Comment: No lifting greater than 20 lb for 2 weeks. Okay to remove the outer dressing and shower after 24 hours. Leave the Steri-Strips on until they start to peel off in 1-2 weeks. Discharge orders & Medications Prescriptions: New oxycodone-acetaminophen [Percocet] 5-325 mg tablet 1 tab PO Q8H PRN (Reason: pain) Qty: 10 0RF Continued nicotine 7 mg/24 hr patch 24 hour 1 patch transdermal Q24H Qty: 14 0RF ondansetron 4 mg tablet,disintegrating 4 mg PO Q6H PRN (Reason: nausea and vomiting) Qty: 14 0RF Label Comments: PT HASN'T FILLED RX RECEIVED FROM ED Follow up/Referrals: Ritesh Reynolds MD [Primary Care Provider] - Discharge Data Primary Care Provider: Ritesh Reynolds Attending Provider: Maeve Finley
--- NOTE | 2021-08-08 11:59 | CM.DPC ---
DCP Cont: Patient is supposed to discharge home today. Patient was wanting a walker, feels that she needs it for safety at home. Nurse, Nidhi, had mentioned these concerns of patient. Encouraged her to place a P.T. order, and therapy can do an evaluation for a walker. It was not noted in notes that patient has had difficulty with ambulation, but pain has been a factor. Will see how she does with P.T, and if a walker will be needed. P: DCP to continue to follow for any needs. P.T. may do an evaluation today before discharge to see if she needs a walker. Rose Fisher, CARLOS/[employer]
--- NOTE | 2021-08-08 13:10 | PT.IIE ---
Surgery Performed Operation Date: 08/05/21 10:15 Actual Procedures p Laparoscopic Cholecystectomy(Not Applicable) - Maeve Finley MD Medical History (Last Updated 08/07/21 @ 09:00 by Maeve Finley MD) Gallstones Hyperglycemia Patient denies medical problems Urinary tract infection Physical Therapy Inpatient Evaluation/Re-Eval M1 PT/OT-IP Prior Functional Status Start: 08/08/21 14:29 Freq: NEEDED Status: Active Protocol: Document 08/08/21 13:10 AB (Rec: 08/08/21 14:43 AB [id number]) Medical Review Prior Functional Status Medical History Reviewed Yes Communication able to make needs known Mobility and Gait pt stated that she is independent with all mobilities and ambulation without AD Social History Household Members family Living Arrangements House Number of Floors (Floors) One Floor Number of Stairs To Enter/Railing? 3 steps without rails to enter the front of the house Home Environment Standard Height Toilet,Tub/ Shower Additional Social History Comment pt lives with her mom and daughter; stated that her mom works from home and can assist her as needed M2 PT-IP Current Condition Start: 08/08/21 14:29 Freq: NEEDED Status: Active Protocol: Document 08/08/21 13:10 AB (Rec: 08/08/21 14:43 AB [email or web address]) Physical Therapy Current Condition Current Condition Evaluation Date 08/08/21 Treatment Diagnosis acute cholecystits s/p lap fanny; difficulty in walking Onset Date 08/05/20 M3 PT-IP Subjective Start: 08/08/21 14:29 Freq: NEEDED Status: Active Protocol: Document 08/08/21 13:10 AB (Rec: 08/08/21 14:43 AB [id number]) Subjective Physical Therapy Visit Type Type Initial Evaluation Visit Start Time 13:10 Visit Stop Time 13:50 Total Visit Minutes 40 Number of [employer] SALES Visits 0 Physical Therapy Visit Comments Patient Comments agreeable to do PT Therapy Pain Assessment Pain When Pain Assessed At Rest Pain Present Pain Present Pain Reported Location Abdomen Intensity 3 Scale Used increases to 7/10 with mobility Pain Management Techniques Distraction,Modification of Treatment,Re-positioning, Timing of Activity with Medications M4 PT-IP Mobility and Gait Start: 08/08/21 14:29 Freq: NEEDED Status: Active Protocol: Document 08/08/21 13:10 AB (Rec: 08/08/21 14:43 AB [email or web address]) PT-Bed Mobility Assessment Rolling Type of Rolling Log Rolling Level of Assist Standby Assistance Supine to Sit Supine to Sit Standby Assistance Sit to Supine Sit to Supine Standby Assistance PT-Transfer Assessment Sit to and From Stand Sit to and from Stand Contact Guard Assistance,1 Person Assistance,Use of Upper Extremities Equipment Transfer Assistive Device None,Gait Belt,Front Wheeled Walker Orthotic/Prosthetic Devices or Brace: No Comments Mobility Comments pt supine in bed. educated on abdominal precautions and log roll bed mobility. completed supine to sit log roll SBA with cues. pt with c/o increase abdominal pain with mobility and needs frequent rest breaks in between activities. pt was able to sit on EOB SBA. completed ambulation in room ~ 12 ft without AD CGA. presents with very guarded gait with very slow nivia. assessed ambulation using FWW completed 12 ft SBA. pt is steady and able to ambulate with less guarding using FWW. pt completed up/down step stool with L rail CGA. repeated x 2 sets. pt requested to go back to bed and completed sit to supine SBA with cues for log roll. positioned pt in bed. call light and table placed within reach. Gait Assessment Gait Gait Assistance Required: Standby Assistance,Contact Guard Assist Distance (Feet) 12 Able to Maintain Weight Bearing Status Yes During Gait Assistive Devices Assistive Device None,Gait Belt,Front Wheeled Walker Orthotic/Prosthetic Devices or Brace: No Gait Deviations General Gait Pattern Decreased Stride Length, Decreased Feet Clearance,Step- to Gait Factors Limiting Gait Function Factors Limiting Gait Function Decreased Activity Tolerance, Decreased Strength,Limited Range of Motion,Pain,Poor Balance Stair Climbing Assessment Evaluation Level of Assist On Stairs Contact Guard Assistance Devices Stair Climbing Assistive Devices Left Railing Technique/Endurance Stair Climbing Direction Ascend and Descend Stair Climbing Technique Step to Step Number of Steps Climbed 1 Query Text: Stair Climbing Set # Repetitions (reps) 2 PT-Balance Assessment Sitting Balance and Reactions Static Sitting Balance Ability Normal Dynamic Sitting Balance Ability Good Standing Balance and Reactions Static Standing Balance Ability Fair Dynamic Standing Balance Ability Fair Device Used without AD M5 PT-IP Objective Assessments Start: 08/08/21 14:29 Freq: NEEDED Status: Active Protocol: Document 08/08/21 13:10 AB (Rec: 08/08/21 14:43 AB [email or web address]) Orientation Orientation/Cognition Level of Alertness Alert Orientation Name,Place,Situation Language Function Ability No Deficits Noted Safety Awareness Decreased Safety Awareness Memory Description No Deficits Noted Gross Range of Motion Lower Extremity ROM Assessment Within Functional Limits Strength Lower Extremity Strength Assessment Within Functional Limits Coordination Assessment Gross Coordination Gross Coordination WNL Sensation Assessment Sensation Gross Sensation WNL Muscle Tone Muscle Tone WNL Yes M6 PT-IP Treatment Start: 08/08/21 14:29 Freq: NEEDED Status: Active Protocol: Document 08/08/21 13:10 AB (Rec: 08/08/21 14:43 AB [id number]) Physical Therapy Treatment Education Education Provided Precautions,Safety Equipment Issued Equipment Type and Company FWW: from [employer]: pt signed papers M7 PT-IP Assessment and Plan Start: 08/08/21 14:29 Freq: NEEDED Status: Active Protocol: Document 08/08/21 13:10 AB (Rec: 08/08/21 14:43 AB [id number]) PT Summary Assessment and Plan Potential Rehabilitation Potential Good Status of Condition at Evaluation Stable Summary Impairments Pain,ROM,Strength,Balance, Coordination,Sensation,Tone, Cognition,Bed Mobility, Transfers,Gait,Activity Tolerance Assessment Summary Nurse informed PT that pt is wanting a FWW for dc home. PT eval received to assess mobility and safety with use of FWW. Assessed pt's ambulation using FWW and without AD. pt with c/o increase abdominal pain with mobility with increase trunk guarding affecting stability and movement and is steadier with ambulation using FWW. Pt plans to go home and stated that her mom will be able to assist as needed. informed nurse regarding pt's mobility and FWW order obtained. FWW dispensed to pt and pt signed papers for FWW. Goals Bed Mobility Goal Independent Transfer Goal Independent Gait Goal Independent Gait Distance 200 Other Goals up/down 2 steps L rail ascending SBA ambulation without AD 250 ft SBA Days to Meet Goals 5 Frequency of Treatment Frequency Of Treatment Once a Day Treatment Plan Physical Therapy Treatment Plan Bed Mobility Training,Transfer Training,Gait Training, Therapeutic Exercise,Balance Retraining,Post Op Education, Discharge Planning,Hot or Cold Pack,Neuromuscular Re-ed, Coordination Retraining,Manual Therapy Precautions Abdominal Surgery Precautions Log Roll,Lifting Restrictions, Gait Belt above Incisional Area Recommendations To Nursing Amount of Assist Needed 1 Person Assist Discharge Recommendations PT Discharge Recommendations Home with Assistance Transportation Needs at Discharge Private Vehicle
[2021-08-08] MEDS: ALPRAZolam 0.5 MG TABLET PO (13:25)
--- NOTE | 2021-08-08 17:28 | PC.NURSE ---
Patient A&Ox3. She is able to tolerate oatmeal today, encouraged her to advance her diet slowly with high fiber. Pt reports pain controlled well with prn oxycodone. She is able to ambulate to the bathroom independently. She is passing gas and reports a very small stool. Abdomen is soft and tender, Incision dressings c/d/I. She is tearful this a.m. after talking with her mother, initially she declined taking xanax. Notified that her DBP is elevated. MD clearing patient for discharge home. She is instructed to follow up with her primary care provider for anxiety and blood pressure. Per patient requesst ordered a FWW for home, and upon PT mervat was able to get a FWW delivered to her prior to discharge. She verbalizes understanding of discharge instructions, incision care, signs of infection,activity restrictions, medications and follow up recommendations. GARMENT FOLDER escorted patient via w/ch with all of her belongings and FWW to private vehicle with her mother for discharge home.
== END 2021-08-08 16:00 | disposition home or self-care (01) ==
LOC: ED 08-05 01:54 → AC 08-05 01:55
PROVIDERS: Admitting Provider Surgery; Emergency Provider Emergency Medicine; PCP Family Medicine; Visit Provider Surgery
PROC: 0FT44ZZ Resection of Gallbladder, Percutaneous Endoscopic Approach (ICD-10-PCS; CPT 47562; principal; 2021-08-05 10:15)
DX: K80.10 Calculus of gallbladder with chronic cholecystitis without obstruction (principal); F17.210 Nicotine dependence, cigarettes, uncomplicated; Z20.822 Contact with and (suspected) exposure to COVID-19
CPT/HCPCS: 47562; 36415; 74177; 76705; 80053; 83605; 83690; 84703; 85025; 87635; 96361; 96365; 96375; 96376; 97161; 97530; 99219; 99284; 99285; C9803; G0378; J1100; J1170; J1885; J2060; J2250; J2405; J2543; J2704; J3010; Q9967

== ENCOUNTER → 2021-11-04 11:53 | Outpatient (CLI) | payer OTHER, MEDICAID, SELFPAY ==
[2021-09-02 11:48] VITALS: BMI 30.9
[2021-11-04 13:41] LABS: Alanine Aminotransferase 32 IU/L (<35); Albumin 4.6 g/dL (3.5-5.0); Albumin Globulin Ratio 1.6 (1.0-2.8); Alkaline Phosphatase 97 U/L (38-126); Aspartate Aminotransferase 36 IU/L (14-36); BUN Creatinine Ratio 14.7 (6-22); Bilirubin Total 0.5 mg/dL (0.2-1.3); Blood Urea Nitrogen 11 mg/dL (7-17); Calcium 8.7 mg/dL (8.4-10.2); Carbon Dioxide 22 mmol/L (22-32); Chloride 110 mmol/L (98-107); Estimated Glomerular Filt Rate > 60 mL/min (>60); Globulin 2.9 g/dL (1.7-4.1); Glucose 95 mg/dL (70-100); HEMOLYSIS < 15 (0-50); Potassium 4.3 mmol/L (3.4-5.1); Sodium 140 mmol/L (137-145); Total Protein 7.5 g/dL (6.3-8.2)
[2021-11-04 14:09] LABS: TSH w/ Reflex to FT4 0.89 uIU/mL (0.47-4.68)
== END ==
PROVIDERS: PCP Family Medicine; Referring Provider Family Medicine; Visit Provider Family Medicine
DX: F41.9 Anxiety disorder, unspecified (principal); R74.8 Abnormal levels of other serum enzymes
CPT/HCPCS: 36415; 80053; 84443

== ENCOUNTER 2021-12-25 19:41 | Emergency (ER) | payer OTHER, MEDICAID, SELFPAY ==
[2021-09-02 11:48] VITALS: BMI 30.9
[2021-12-25 20:00] VITALS: BP 162/105; PULSE 130; RESP 22; TEMP 37.2; O2SAT 96
--- NOTE | 2021-12-25 21:23 | ED_ITS ---
HPI - URI/Sore Throat General Chief Complaint: Upper Respiratory Symptoms Stated Complaint: Rt Swollen Lymph Node/Not Able to Eat Time Seen by Provider: 12/25/21 20:41 Source: patient Mode of arrival: Ambulatory History of Present Illness HPI Narrative: Patient complains of sore throat for the past 3 days. Has decreased oral intake due to throat pain. However has been drinking without any problem heart rate noted. Last Tylenol taken earlier today. Denies does not want test. Positive strep test here. Denies any sick contacts. Patient in no distress. Patient states she feels hot. Related Data Previous Rx's Medication Instructions Recorded hydroxyzine HCl 10 mg tablet See Rx Instructions PO QID PRN 09/22/21 anxiety #60 tabs escitalopram oxalate 20 mg tablet 20 mg PO DAILY #60 tabs 11/13/21 (Lexapro) amoxicillin 500 mg capsule 500 mg PO BID #20 caps 12/25/21 Allergies Allergy/AdvReac Type Severity Reaction Status Date / Time No Known Drug Allergies Allergy Verified 01/09/21 16:10 Review of Systems Review of Systems Narrative: GENERAL: Positive for chills, fatigue, malaise, positive for fever, sweats. HEENT: Denies sinus pain, positive for ear pain, sore throat RESPIRATORY: Denies dyspnea, cough CARDIOVASCULAR: Denies chest pain, palpitations GASTROINTESTINAL: Denies nausea, vomiting, abdominal pain : Denies dysuria, frequency, hematuria MUSCULOSKELETAL: denies muscle or bony pain SKIN: Denies rash, skin lesions NEUROLOGIC: Denies weakness, numbness ROS Unobtainable: All systems reviewed & are unremarkable except as noted in HPI and below Patient History Medical History Elevated liver enzymes Gallstones Hyperglycemia Patient denies medical problems Urinary tract infection Family History Other Adopted Social History household members: family Smoking Status: Current every day smoker alcohol intake: current Smoking Status: Current every day smoker tobacco type: cigarettes alcohol intake frequency: holidays/special occasions only Substance Use Type: marijuana Exam Narrative Exam Narrative: GENERAL: in no distress, not toxic not dyspneic HEAD: Normocephalic. EYES: Pupils equal round No scleral icterus. ENT: Mucous membranes moist. Bilateral symmetric pharyngeal erythema and exudates. No midline shift. No drooling no tongue elevation. No malocclusion or trismus. NECK: Trachea midline. Mild bilateral submandibular tenderness with palpable right greater than left tender lymph nodes. No stridor. CARDIOVASCULAR: Regular rate and rhythm without murmurs, tachycardic RESPIRATORY: Clear to auscultation. Breath sounds equal bilaterally. No wheezes, rales, or rhonchi. EXTREMITIES: No gross deformities. NEURO: AOx4. SKIN: Warm and dry PSYCH: Not anxious, is cooperative Initial Vital Signs Initial Vital Signs: Vital Signs Temperature 99 F 12/25/21 20:00 Pulse Rate 130 H 12/25/21 20:00 Respiratory Rate 22 12/25/21 20:00 Blood Pressure 162/105 H 12/25/21 20:00 Pulse Oximetry 96 12/25/21 20:00 Oxygen Delivery Method 12/25/21 20:00 Course Course Course Narrative: No new issues during course of stay Orders Ordered: Discontinued Medications Amoxicillin (Amoxicillin 250 Mg Capsule) 500 mg PO NOW ONE Stop: 12/25/21 21:22 Last Admin: 12/25/21 21:33 Dose: 500 mg Documented By: AT Ibuprofen (Ibuprofen 400 Mg Tablet) 800 mg PO NOW ONE Stop: 12/25/21 21:24 Last Admin: 12/25/21 21:33 Dose: 800 mg Documented By: AT Reevaluation(s) Reevaluation #1: Reviewed results with patient. Agrees with treatment plan. Antibiotics started here. Return precautions reviewed with her. Heart rate noted and reviewed with her likely temperature related. Time: 21:26 Vital Signs Vital signs: Vital Signs - 8 hr 12/25/21 20:00 12/25/21 21:38 Temperature 99 F Pulse Rate 130 H 117 H Respiratory Rate 22 18 Blood Pressure 162/105 H Pulse Oximetry 96 99 Oxygen Delivery Method Room Air Room Air MDM - URI/Sore Throat Differential Diagnosis Differential diagnosis: Likely pharyngitis and other (Strep throat) Lab Data Labs: Point of Care Testing Rapid Strep A Positive MDM Narrative Medical decision making narrative: Appropriate for discharge home. No blood work or imaging indicated. Patient not toxic. Antibiotics started here. Return precautions reviewed with her. Heart rate likely related temperature. Will likely improve with temperature control. Discharge Plan Departure Patient Disposition: Home Clinical Impression: Strep sore throat Instructions: DI for Strep Throat Activity Restrictions/Additional Instructions: Continue Tylenol or ibuprofen for fever aches and pain. Keep well hydrated. See family doctor in a week for recheck. Prescription has been sent to your [facility] pharmacy for amoxicillin. Be sure to complete all of the pills. Return if worse if any questions or concerns Prescriptions: New amoxicillin 500 mg capsule 500 mg PO BID Qty: 20 0RF No Action hydroxyzine HCl 10 mg tablet See Rx Instructions PO QID PRN (Reason: anxiety) Qty: 60 3RF Rx Instructions: t1-2 tabs PO four times daily PRN; escitalopram oxalate [Lexapro] 20 mg tablet 20 mg PO DAILY Qty: 60 0RF Referrals: Ritesh Reynolds MD [Primary Care Provider] - Visit Report Forms: Patient Portal/API
[2021-12-25] MEDS: IBUPROFEN 400 MG TABLET 800 MG PO (21:33)
[2021-12-25] MEDS: AMOXICILLIN 250 MG CAPSULE 500 MG PO (21:33)
[2021-12-25 21:38] VITALS: PULSE 117; RESP 18; O2SAT 99
== END 2021-12-25 21:38 | disposition home or self-care (01) ==
PROVIDERS: Emergency Provider Emergency Medicine; PCP Family Medicine
DX: J02.0 Streptococcal pharyngitis (principal)
CPT/HCPCS: 87880; 99283

== ENCOUNTER 2022-06-08 09:06 | Emergency (ER) | payer OTHER, MEDICAID, SELFPAY ==
[2021-09-02 11:48] VITALS: BMI 30.9
[2022-06-08 09:17] VITALS: BP 165/113; PULSE 102; RESP 24; TEMP 37.2; O2SAT 97; BMI 31.1
--- NOTE | 2022-06-08 09:25 | DI.RAD.S_ITS ---
PROCEDURE: XR CHEST 2V INDICATIONS: pain r chest w/ chough, fever. TECHNIQUE: 2 views of the chest were acquired. COMPARISON: None. FINDINGS: Surgical changes and devices: None. Lungs and pleura: Lungs are clear. No pleural effusions or pneumothorax. Mediastinum: Mediastinal contours are normal. Heart size is normal. Bones and chest wall: No suspicious bony abnormalities. Soft tissues appear unremarkable. IMPRESSION: No acute pulmonary process. Dictated by: Abby Castle M.D. on 06/08/2022 at 10:23 Approved by: Abby Castle M.D. on 06/08/2022 at 10:24
[2022-06-08 10:30] LABS: Influenza A - CEPHEID Flu A NEGATIVE (NEGATIVE); Influenza B - CEPHEID Flu B NEGATIVE (NEGATIVE); Respiratory Syncytial Virus Negative (Negative)
[2022-06-08 10:39] LABS: COVID-19 CEPHEID 4-PLEX PCR Negative (Negative)
[2022-06-08 13:47] VITALS: BP 147/99; PULSE 89; TEMP 37.1; O2SAT 96
--- NOTE | 2022-06-08 15:07 | ED.GENADULT ---
HPI - General Adult <Urszula Leger PA-C - Last Filed: 06/08/22 15:11> General Chief complaint: Fever Stated complaint: 'right side does not feel good',coughing Time Seen by Provider: 06/08/22 14:17 Source: patient Mode of arrival: Ambulatory History of Present Illness HPI narrative: 31-year-old female presents to the ED with 1 day of coughing. Patient states that she experienced some food poisoning 4 days ago, experience nausea and vomiting for 2 days. Patient states that her food poisoning symptoms have resolved since 2 days ago. Patient states that she started coughing last night, was unable to get relief from the cough, was unable to sleep. Patient's daughter was positive for RSV. Patient denies fever, chills, shortness of breath, nausea, vomiting. Patient states that her right chest and right upper back muscles hurt due to the coughing. Related Data Previous Rx's Medication Instructions Recorded hydroxyzine HCl 10 mg tablet See Rx Instructions PO QID PRN 09/22/21 anxiety #60 tabs escitalopram oxalate 20 mg tablet 20 mg PO DAILY #60 tabs 11/13/21 (Lexapro) benzonatate 200 mg capsule 200 mg PO TID PRN cough #30 caps 06/08/22 Allergies Allergy/AdvReac Type Severity Reaction Status Date / Time No Known Drug Allergies Allergy Verified 06/08/22 09:22 Review of Systems <Urszula Leger PA-C - Last Filed: 06/08/22 15:11> Review of Systems ROS Unobtainable: All systems reviewed & are unremarkable except as noted in HPI and below Constitutional Constitutional: Denies chills, Denies fatigue, Denies fever(s), Denies frequent falls, Denies lethargy and Denies weakness Eyes Eyes: Denies change in vision, Denies eye discharge, Denies irritation and Denies loss of vision ENT Ears, Nose, Mouth, and Throat: Denies change in voice, Denies dizziness, Denies neck pain, Denies sore throat and Denies throat swelling Cardiovascular Cardiovascular: Denies chest pain, Denies irregular heart rhythm, Denies lightheadedness, Denies palpitations, Denies dyspnea, Denies dyspnea on exertion and Denies orthopnea Respiratory Respiratory: Reports cough, Denies dyspnea, Denies dyspnea on exertion and Denies wheezing Gastrointestinal Gastrointestinal: Denies abdominal pain, Denies change in bowel habits, Denies diarrhea, Denies nausea and Denies vomiting Genitourinary Genitourinary: Denies hematuria, Denies flank pain, Denies urinary incontinence and Denies urinary urgency Musculoskeletal Musculoskeletal: Denies back pain, Denies muscle weakness, Denies neck pain, Denies numbness and Denies tingling Integumentary/Breasts Skin/Breast: Denies pruritus, Denies erythema, Denies rash and Denies wounds Neurologic Neurologic: Denies behavioral changes, Denies confusion, Denies dizziness, Denies frequent falls, Denies loss of vision, Denies numbness, Denies tingling and Denies weakness Psychiatric Psychiatric: Denies anxiety, Denies behavioral changes, Denies confusion, Denies depression, Denies homicidal ideation and Denies suicidal ideation Endocrine Endocrine: Denies fatigue, Denies flushing and Denies palpitations Hematologic/Lymphatic Hematologic/Lymphatic: Denies easy bruising Allergic/Immunologic Allergic/Immunologic: Denies urticaria, Denies throat swelling and Denies wheezing Patient History <Urszula Leger PA-C - Last Filed: 06/08/22 15:11> Medical History Elevated liver enzymes Gallstones Hyperglycemia Patient denies medical problems Urinary tract infection Family History Other Adopted Social History household members: family Smoking Status: Current every day smoker alcohol intake: current Smoking Status: Current every day smoker tobacco type: cigarettes alcohol intake frequency: holidays/special occasions only Substance Use Type: marijuana Exam <Urszula Leger PA-C - Last Filed: 06/08/22 15:11> Narrative Exam Narrative: Const General:?cooperative, healthy appearing and comfortable [facility] Head:?normal to inspection Ears:?hearing grossly normal bilaterally Nose:?external nose normal Face and sinus:?normal facial exam and sinuses nontender Mouth:?oral mucosae normal Throat:?posterior oropharynx normal Eyes General:?appearance normal, both eyes and all related structures Neck Neck:?normal visual inspection and no lymphadenopathy noted Resp Effort & Inspection:?normal respiratory effort Auscultation:?clear to auscultation bilaterally Cardio Rate:?regular rate Rhythm:?regular rhythm Neuro General:?patient alert, patient awake and patient oriented x3 Initial Vital Signs Initial Vital Signs: Vital Signs Temperature 99.0 F 06/08/22 09:17 Pulse Rate 102 H 06/08/22 09:17 Respiratory Rate 24 06/08/22 09:17 Blood Pressure 165/113 H 06/08/22 09:17 Pulse Oximetry 97 06/08/22 09:17 Oxygen Delivery Method 06/08/22 09:17 <Jael Schwartz DO - Last Filed: 06/19/22 11:28> Initial Vital Signs Initial Vital Signs: Vital Signs Temperature 99.0 F 06/08/22 09:17 Pulse Rate 102 H 06/08/22 09:17 Respiratory Rate 24 06/08/22 09:17 Blood Pressure 165/113 H 06/08/22 09:17 Pulse Oximetry 97 06/08/22 09:17 Oxygen Delivery Method 06/08/22 09:17 Course <Urszula Leger PA-C - Last Filed: 06/08/22 15:11> Orders Ordered: Discontinued Medications Acetaminophen (Acetaminophen 325 Mg Tablet) 975 mg PO NOW ONE Stop: 06/08/22 09:28 Last Admin: 06/08/22 15:10 Dose: 975 mg Documented By: MARYSE Vital Signs Vital signs: Vital Signs - 8 hr 06/08/22 09:17 06/08/22 13:47 Temperature 99.0 F 98.8 F Pulse Rate 102 H 89 Respiratory Rate 24 Blood Pressure 165/113 H 147/99 H Pulse Oximetry 97 96 Oxygen Delivery Method Room Air Room Air <Jael Schwartz DO - Last Filed: 06/19/22 11:28> Orders Ordered: Discontinued Medications Acetaminophen (Acetaminophen 325 Mg Tablet) 975 mg PO NOW ONE Stop: 06/08/22 09:28 Last Admin: 06/08/22 15:10 Dose: 975 mg Documented By: MARYSE Vital Signs Vital signs: Vital Signs - 8 hr 06/08/22 09:17 06/08/22 13:47 Temperature 99.0 F 98.8 F Pulse Rate 102 H 89 Respiratory Rate 24 Blood Pressure 165/113 H 147/99 H Pulse Oximetry 97 96 Oxygen Delivery Method Room Air Room Air Medical Decision Making <Urszula Leger PA-C - Last Filed: 06/08/22 15:11> Lab Data Labs: Lab Results 06/08/22 Range/Units 09:24 SARS-CoV-2 (PCR) Negative (Negative) Influenza A (RT-PCR) Flu a negative (NEGATIVE) Influenza B (RT-PCR) Flu b negative (NEGATIVE) RSV (PCR) Negative (Negative) Point of Care Testing Test Results Negative Urine Dip Bedside Urine Glucose Negative Bedside Urine Bilirubin - Negative Bedside Urine Ketone - Negative Urine Specific [place] 1.015 Bedside Urine Occult Blood - Negative Bedside Urine pH 7.0 Bedside Urine Protein - Negative Bedside Urine Urobilinogen - Negative Bedside Urine Nitrite - Negative Bedside Urine Leukocytes - Negative Esterase Point of care testing: Point of Care Testing Test Results Negative Urine Dip Bedside Urine Glucose Negative Bedside Urine Bilirubin - Negative Bedside Urine Ketone - Negative Urine Specific [place] 1.015 Bedside Urine Occult Blood - Negative Bedside Urine pH 7.0 Bedside Urine Protein - Negative Bedside Urine Urobilinogen - Negative Bedside Urine Nitrite - Negative Bedside Urine Leukocytes - Negative Esterase Imaging Data Chest x-ray: Radiologist's Impression: PROCEDURE:? XR CHEST 2V ? INDICATIONS:? pain r chest w/ chough, fever. ? TECHNIQUE:? 2 views of the chest were acquired.? ? COMPARISON:? None. ? FINDINGS:? ? Surgical changes and devices:? None.? ? Lungs and pleura:? Lungs are clear.? No pleural effusions or pneumothorax.? ? Mediastinum:? Mediastinal contours are normal.? Heart size is normal.? ? Bones and chest wall:? No suspicious bony abnormalities.? Soft tissues appear unremarkable.? ? IMPRESSION:? No acute pulmonary process. ? ? Dictated by: Abby Castle M.D. on 06/08/2022 at 10:23 ? ? Approved by: Abby Castle M.D. on 06/08/2022 at 10:24 ? MDM Narrative Medical decision making narrative: 31-year-old female presents to the ED with 1 day of coughing. Patient states that she experienced some food poisoning 4 days ago, experience nausea and vomiting for 2 days. Respiratory swab was negative for COVID and influenza. Chest x-ray was without acute findings. Patient's symptoms likely due to upper respiratory infection such as RSV. Supportive care discussed with patient. Tessalon Perles prescribed for cough. ED return precautions were discussed with patient. Patient verbalized understanding. <Jael Schwartz DO - Last Filed: 06/19/22 11:28> Lab Data Labs: Lab Results 06/08/22 Range/Units 09:24 SARS-CoV-2 (PCR) Negative (Negative) Influenza A (RT-PCR) Flu a negative (NEGATIVE) Influenza B (RT-PCR) Flu b negative (NEGATIVE) RSV (PCR) Negative (Negative) Point of Care Testing Test Results Negative Urine Dip Bedside Urine Glucose Negative Bedside Urine Bilirubin - Negative Bedside Urine Ketone - Negative Urine Specific [place] 1.015 Bedside Urine Occult Blood - Negative Bedside Urine pH 7.0 Bedside Urine Protein - Negative Bedside Urine Urobilinogen - Negative Bedside Urine Nitrite - Negative Bedside Urine Leukocytes - Negative Esterase Point of care testing: Point of Care Testing Test Results Negative Urine Dip Bedside Urine Glucose Negative Bedside Urine Bilirubin - Negative Bedside Urine Ketone - Negative Urine Specific [place] 1.015 Bedside Urine Occult Blood - Negative Bedside Urine pH 7.0 Bedside Urine Protein - Negative Bedside Urine Urobilinogen - Negative Bedside Urine Nitrite - Negative Bedside Urine Leukocytes - Negative Esterase Discharge Plan Departure Patient Disposition: Home Clinical Impression: Upper respiratory infection Instructions: DI for Viral Upper Respiratory Infection -- Adult Activity Restrictions/Additional Instructions: You were evaluated in the ED today for a cough. Your chest x-ray was normal. Your COVID and influenza tests were negative as well. Your symptoms are likely due to a upper respiratory infection such as RSV, especially since your daughter tested positive for RSV. You are being prescribed Tessalon Perles for your cough. You may take Tylenol, ibuprofen for your symptoms. Continue to stay well hydrated. Return to the ED if you have any trouble breathing. Prescriptions: New benzonatate 200 mg capsule 200 mg PO TID PRN (Reason: cough) Qty: 30 0RF No Action hydroxyzine HCl 10 mg tablet See Rx Instructions PO QID PRN (Reason: anxiety) Qty: 60 3RF Rx Instructions: t1-2 tabs PO four times daily PRN; escitalopram oxalate [Lexapro] 20 mg tablet 20 mg PO DAILY Qty: 60 0RF Referrals: Ritesh Reynolds MD [Primary Care Provider] - Visit Report Forms: Patient Portal/API <Jael Schwartz DO - Last Filed: 06/19/22 11:28> Cosign ED Attending Cosignature Attestation: I was immediately available in the department for consultation. Documentation has been reviewed.
[2022-06-08] MEDS: ACETAMINOPHEN 325 MG TABLET 975 MG PO (15:10)
[2022-06-08 15:14] VITALS: BP 150/83; PULSE 79; RESP 17; O2SAT 99
== END 2022-06-08 15:15 | disposition home or self-care (01) ==
PROVIDERS: Emergency Medicine; Emergency Provider Student in an Organized Health Care Education/Training Program; PCP Family Medicine
DX: J06.9 Acute upper respiratory infection, unspecified (principal); R11.2 Nausea with vomiting, unspecified; Z20.822 Contact with and (suspected) exposure to COVID-19
CPT/HCPCS: 0241U; 71046; 81003; 81025; 99283; 99284

== ENCOUNTER → 2022-12-20 16:26 | Outpatient (CLI) | payer OTHER, MEDICAID, SELFPAY ==
[2021-09-02 11:48] VITALS: BMI 30.9
== END ==
PROVIDERS: PCP Family Medicine; Visit Provider Registered Nurse
DX: R10.9 Unspecified abdominal pain (principal)
CPT/HCPCS: 81002; 81025; 87086

== ENCOUNTER 2024-06-20 17:41 | Emergency (ER) | payer OTHER, MEDICAID, SELFPAY ==
[2021-09-02 11:48] VITALS: BMI 30.9
[2024-06-20] VITALS (16 sets, daily range): BP systolic 133–159; BP diastolic 89–105; PULSE 99–125; RESP 18; TEMP 36.3; O2SAT 97–99; BMI 32.1
--- NOTE | 2024-06-20 17:58 | ED_ITS ---
HPI - Nausea/Vomiting/Diarrhea General Chief complaint: Nausea/Vomiting/Diarrhea Stated complaint: vomiting, abd pain Time Seen by Provider: 06/20/24 17:55 History of Present Illness HPI Narrative: 33-year-old female presents for nausea, vomiting, generalized abdominal pain. Patient states that her daughter is sick at home with a GI bug and she thinks that she may have caught the same thing, but she can not keep anything down at home. Related Data Previous Rx's Medication Instructions Recorded hydroxyzine HCl 10 mg tablet See Rx Instructions PO QID PRN 04/06/23 anxiety #60 tabs bupropion HCl 150 mg 24 hr tablet, 300 mg (2 x 150 mg) PO QAM #60 tabs 04/07/23 extended release (Wellbutrin XL) ondansetron 4 mg disintegrating 4 mg PO Q8H PRN nausea and 06/20/24 tablet vomiting #30 tabs promethazine 25 mg tablet 25 mg PO Q6H PRN nausea and 06/20/24 vomiting #30 tabs Allergies Allergy/AdvReac Type Severity Reaction Status Date / Time haloperidol [From Haldol] AdvReac Intermediate Anxiety Verified 06/20/24 20:50 Patient History Medical History Elevated liver enzymes Gallstones Hyperglycemia Urinary tract infection Patient denies medical problems Family History Other Adopted Social History household members: family Smoking Status: Current every day smoker alcohol intake: current Smoking Status: Current every day smoker tobacco type: cigarettes alcohol intake frequency: holidays/special occasions only Substance Use Type: marijuana Exam Initial Vital Signs Initial Vital Signs: Vital Signs Pulse Rate 111 H 06/20/24 17:54 Blood Pressure 159/105 H 06/20/24 17:54 Pulse Oximetry 98 06/20/24 17:54 Const: Awake, alert, loudly retching into emesis bag Cardiac: tachycardia, regular rhythm RESP: unlabored, clear bilaterally, no wheezing GI: Soft, generalized tenderness to deep palpation without rebound or guarding Skin: Warm, Dry, intact, no rashes Neuro: AO x3, CN II-XII grossly intact, moves all extremities Course Orders Ordered: ED Orders 06/20/24 19:03 CBC Auto Diff [Complete Blood Count AUTO DIFF] Stat CMP [Comprehensive Metabolic Panel] Stat Lipase Stat Discontinued Medications Diphenhydramine HCl (Diphenhydramine 50 Mg/Ml Vial) 50 mg IV NOW ONE Stop: 06/20/24 19:05 Last Admin: 06/20/24 19:24 Dose: 50 mg Documented By: Haloperidol (Haloperidol 5 Mg/Ml Vial) 3 mg IV NOW ONE Stop: 06/20/24 17:58 Last Admin: 06/20/24 18:45 Dose: 3 mg Documented By: DENYS Sodium Chloride (Normal Saline 0.9%) 1,000 mls @ 1,000 mls/hr IV BOLUS ONE Stop: 06/20/24 20:03 Last Infusion: 06/20/24 20:48 Dose: Infused Documented By: Admin: 06/20/24 19:24 Dose: 1,000 mls/hr Documented By: Metoclopramide HCl (Metoclopramide 10 Mg/2 Ml Inj) 10 mg IV NOW ONE Stop: 06/20/24 19:05 Last Admin: 06/20/24 19:24 Dose: 10 mg Documented By: Vital Signs Vital signs: Vital Signs - 8 hr 06/20/24 17:54 06/20/24 17:54 06/20/24 17:57 Temperature 97.3 F L Pulse Rate 111 H 125 H Respiratory Rate 18 Blood Pressure 159/105 H 159/105 H Pulse Oximetry 98 98 Oxygen Delivery Method Room Air 06/20/24 18:00 06/20/24 18:00 06/20/24 18:30 Temperature Pulse Rate 111 H 115 H Respiratory Rate Blood Pressure 142/93 H Pulse Oximetry 97 99 Oxygen Delivery Method 06/20/24 18:34 06/20/24 18:34 06/20/24 19:01 Temperature Pulse Rate 104 H 105 H Respiratory Rate Blood Pressure 151/100 H Pulse Oximetry 98 99 Oxygen Delivery Method 06/20/24 19:02 06/20/24 19:02 06/20/24 19:30 Temperature Pulse Rate 103 H 99 H Respiratory Rate Blood Pressure 151/93 H Pulse Oximetry 99 98 Oxygen Delivery Method 06/20/24 20:02 06/20/24 20:30 06/20/24 20:30 Temperature Pulse Rate 112 H Respiratory Rate 18 Blood Pressure 159/101 H 137/96 H Pulse Oximetry 98 Oxygen Delivery Method 06/20/24 20:48 06/20/24 21:00 06/20/24 21:14 Temperature Pulse Rate 100 H 114 H Respiratory Rate 18 Blood Pressure 141/92 H Pulse Oximetry 98 98 Oxygen Delivery Method 06/20/24 21:30 06/20/24 21:30 06/20/24 22:00 Temperature Pulse Rate 105 H Respiratory Rate Blood Pressure 144/89 H 133/95 H Pulse Oximetry 97 Oxygen Delivery Method 06/20/24 22:00 06/20/24 22:30 06/20/24 22:30 Temperature Pulse Rate 107 H 109 H Respiratory Rate Blood Pressure 149/95 H Pulse Oximetry 98 98 Oxygen Delivery Method Room Air Room Air MDM - Nausea/Vomiting/Diarrhea Differential Diagnosis Differential diagnosis: Likely traveler's diarrhea, food poisoning and gastroenteritis Lab Data 06/20/24 19:03 06/20/24 19:03 Labs: Lab Results 06/20/24 Range/Units 19:03 WBC 17.2 H (4.5-11.0) X10^3/uL RBC 4.89 (4.0-5.2) X10^6/uL Hgb 15.6 (12.0-16.0) g/dL Hct 45.6 (36-46) % MCV 93.2 (80-100) fL MCH 31.8 (26-34) PG MCHC 34.1 (30-36) % RDW 12.3 (11.6-14.8) % Plt Count 227 (150-400) X10^3/uL Neut % (Auto) 94.8 H (50-75) % Lymph % (Auto) 2.3 L (25-40) % [place] % (Auto) 2.5 L (3-14) % Eos % (Auto) 0.0 L (2-4) % Baso % (Auto) 0.4 (0-2) % Neut # (Auto) 22988 H (8997-7293) /uL Lymph # (Auto) 400 L (5395-5208) /uL [place] # (Auto) 400 (0-900) /uL Eos # (Auto) 0 (0-450) /uL Baso # (Auto) 100 (0-100) /uL Sodium 137 (137-145) mmol/L Potassium 3.7 (3.4-5.1) mmol/L Chloride 109 H (98-107) mmol/L Carbon Dioxide 21 L (22-32) mmol/L BUN 15 (7-17) mg/dL Creatinine 0.71 (0.52-1.04) mg/dL Estimated GFR > 60 (>60) mL/min BUN/Creatinine Ratio 21.1 (6-22) Glucose 126 H (70-100) mg/dL Calcium 8.8 (8.4-10.2) mg/dL Total Bilirubin 0.6 (0.2-1.3) mg/dL AST 53 H (14-36) IU/L ALT 39 H (<35) IU/L Alkaline Phosphatase 76 (38-126) U/L Total Protein 7.6 (6.3-8.2) g/dL Albumin 4.3 (3.5-5.0) g/dL Globulin 3.3 (1.7-4.1) g/dL Albumin/Globulin Ratio 1.3 (1.0-2.8) Lipase 32 (23-300) U/L MDM Narrative Medical decision making narrative: Nontoxic appearing patient with nausea, vomiting, diarrhea. Abdomen generally tender to deep palpation without rebound or guarding, no focal findings. Likely gastroenteritis versus food poisoning based on patient's reported onset and duration of symptoms. Since symptoms has been ongoing for 2 days laboratory work will be ordered. Patient did have some agitation to Haldol, Benadryl and Reglan ordered. Patient was subsequently able to tolerate p.o., she stated that her nausea resolved and she had no more abdominal pain. Patient was observed in the emergency department and had no further episodes of emesis. Discharged home with antiemetics. Discharge Plan Departure Patient Disposition: Home Clinical Impression: Vomiting Instructions: DI for Vomiting -- Adult Activity Restrictions/Additional Instructions: Your laboratory work today is reassuring. Anti nausea medications has been sent to your pharmacy. You may take these if you feel nauseous or have vomiting again. Prescriptions: New ondansetron 4 mg tablet,disintegrating 4 mg PO Q8H PRN (Reason: nausea and vomiting) Qty: 30 0RF promethazine 25 mg tablet 25 mg PO Q6H PRN (Reason: nausea and vomiting) Qty: 30 0RF Rx Instructions: for use if zofran is ineffective No Action hydroxyzine HCl 10 mg tablet See Rx Instructions PO QID PRN (Reason: anxiety) Qty: 60 3RF Rx Instructions: t1-2 tabs PO four times daily PRN; bupropion HCl [Wellbutrin XL] 150 mg tablet extended release 24 hr 300 mg PO QAM Qty: 60 2RF Rx Instructions: taper to start with one 150mg daily for week 1 Referrals: Ritesh Reynolds MD [Primary Care Provider] - Stand Alone Forms: Patient Portal/API/Survey, Work Release Note
[2024-06-20] MEDS: HALOPERIDOL 5 MG/ML VIAL 3 MG IV (18:45)
[2024-06-20 19:17] LABS: Add Manual Diff / Slide Review NO; Basophils Absolute Auto 100 /uL (0-100); Basophils Percent Auto 0.4 % (0-2); Eosinophils Absolute Auto 0 /uL (0-450); Hematocrit 45.6 % (36-46); Hemoglobin 15.6 g/dL (12.0-16.0); Lymphocytes Absolute Auto 400 /uL (1100-4500); Lymphocytes Percent Auto 2.3 % (25-40); Mean Corpuscular HGB Conc 34.1 % (30-36); Mean Corpuscular Hemoglobin 31.8 PG (26-34); Mean Corpuscular Volume 93.2 fL (80-100); Monocytes Absolute Auto 400 /uL (0-900); Monocytes Percent Auto 2.5 % (3-14); Neutrophils Absolute Auto 16300 /uL (1500-7000); Neutrophils Percent Auto 94.8 % (50-75); Platelet Count 227 X10^3/uL (150-400); Red Blood Cell Count 4.89 X10^6/uL (4.0-5.2); Red Cell Distribution Width 12.3 % (11.6-14.8); White Blood Cell Count 17.2 X10^3/uL (4.5-11.0)
[2024-06-20] MEDS: SODIUM CHLORIDE 0.9% 1,000 ML 1000 ML IV (19:24)
[2024-06-20] MEDS: METOCLOPRAMIDE 10 MG/2 ML INJ IV (19:24)
[2024-06-20] MEDS: diphenhydrAMINE 50 MG/ML VIAL IV (19:24)
[2024-06-20 19:45] LABS: Alanine Aminotransferase 39 IU/L (<35); Albumin 4.3 g/dL (3.5-5.0); Albumin Globulin Ratio 1.3 (1.0-2.8); Alkaline Phosphatase 76 U/L (38-126); Aspartate Aminotransferase 53 IU/L (14-36); BUN Creatinine Ratio 21.1 (6-22); Bilirubin Total 0.6 mg/dL (0.2-1.3); Blood Urea Nitrogen 15 mg/dL (7-17); Calcium 8.8 mg/dL (8.4-10.2); Carbon Dioxide 21 mmol/L (22-32); Chloride 109 mmol/L (98-107); Estimated Glomerular Filt Rate > 60 mL/min (>60); Globulin 3.3 g/dL (1.7-4.1); Glucose 126 mg/dL (70-100); HEMOLYSIS 15 (0-50); Lipase 32 U/L (23-300); Potassium 3.7 mmol/L (3.4-5.1); Sodium 137 mmol/L (137-145); Total Protein 7.6 g/dL (6.3-8.2)
== END 2024-06-20 22:54 | disposition home or self-care (01) ==
PROVIDERS: Emergency Provider Emergency Medicine; PCP Family Medicine
DX: R11.2 Nausea with vomiting, unspecified (principal); R10.84 Generalized abdominal pain; R19.7 Diarrhea, unspecified
CPT/HCPCS: 36415; 80053; 83690; 85025; 96361; 96374; 96375; 99284; J1200; J1630; J2765

== ENCOUNTER → 2024-09-14 09:59 | Outpatient (CLI) | payer OTHER, SELFPAY ==
[2021-09-02 11:48] VITALS: BMI 30.9
[2024-09-14 10:49] LABS: COVID-19 CEPHEID 4-PLEX PCR Negative (Negative); Influenza A - CEPHEID Flu A NEGATIVE (NEGATIVE); Influenza B - CEPHEID Flu B NEGATIVE (NEGATIVE); Respiratory Syncytial Virus Negative (Negative)
== END ==
PROVIDERS: PCP Family Medicine; Visit Provider Physician Assistant
DX: R50.9 Fever, unspecified (principal)
CPT/HCPCS: 0241U

== ENCOUNTER 2024-11-03 23:50 | Emergency (ER) | payer OTHER, SELFPAY ==
[2021-09-02 11:48] VITALS: BMI 30.9
[2024-11-04 00:02] VITALS: BP 155/85; PULSE 95; RESP 17; TEMP 36.9; O2SAT 99; BMI 31.1
--- NOTE | 2024-11-04 00:12 | DI.RAD.S_ITS ---
PROCEDURE: XR ELBOW RT MIN 3V INDICATIONS: injury, tenderness to palp to bony prominence TECHNIQUE: 3 views of the elbow were acquired. COMPARISON: None. FINDINGS AND IMPRESSION: No displaced fracture or dislocation. No significant joint effusion. If there is high concern for occult injury, consider repeat radiography or cross-sectional imaging. Dictated by: Arun Rubin M.D. on 11/04/2024 at 0:58 Approved by: Arun Rubin M.D. on 11/04/2024 at 0:58
--- NOTE | 2024-11-04 02:56 | ED.GENADULT ---
HPI - General Adult General Chief complaint: Extremity Injury, Upper Stated complaint: painful elbow injury x 5 days Time Seen by Provider: 11/04/24 02:33 Source: patient Mode of arrival: Ambulatory History of Present Illness HPI narrative: 33-year-old woman with minimal significant medical history presents complaining of right elbow pain. This has been intermittently problematic for well over a month. Initially describes being hit with a cart while at work in the right elbow and feels that that seemed to exacerbate the entire issue. She has been using a neoprene type sleeve over the elbow for support that has been minimally helpful. Over the last week she has noticed an exacerbation, she accidentally went to open a heavy sliding door with her right hand and had severe pain. Now that she has been trying to avoid using her elbow as much she has noticed some mild right shoulder pain. No fevers, chills. No warmth redness or drainage. Related Data Previous Rx's Medication Instructions Recorded hydroxyzine HCl 10 mg tablet See Rx Instructions PO QID PRN 04/06/23 anxiety #60 tabs ondansetron 4 mg disintegrating 4 mg PO Q8H PRN nausea and 06/20/24 tablet vomiting #30 tabs promethazine 25 mg tablet 25 mg PO Q6H PRN nausea and 06/20/24 vomiting #30 tabs amoxicillin 875 mg-potassium 1 tab PO Q12H #20 tabs 09/14/24 clavulanate 125 mg tablet fluticasone propionate 50 1 spray intranasal DAILY #16 grams 09/14/24 mcg/actuation nasal spray,suspension (Flonase Allergy Relief) prednisone 20 mg tablet 20 mg PO DAILY #5 tabs 11/04/24 Allergies Allergy/AdvReac Type Severity Reaction Status Date / Time haloperidol [From Haldol] AdvReac Intermediate Anxiety Verified 09/14/24 09:47 Review of Systems Review of Systems Narrative: Pertinent positive and negative findings as per HPI Patient History Medical History Elevated liver enzymes Gallstones Hyperglycemia Urinary tract infection Patient denies medical problems Family History Other Adopted Social History household members: family Smoking Status: Current every day smoker alcohol intake: current Smoking Status: Current every day smoker tobacco type: cigarettes alcohol intake frequency: holidays/special occasions only Exam Initial Vital Signs Initial Vital Signs: Vital Signs Temperature 98.5 F 11/04/24 00:02 Pulse Rate 95 H 11/04/24 00:02 Respiratory Rate 17 11/04/24 00:02 Blood Pressure 155/85 H 11/04/24 00:02 Pulse Oximetry 99 11/04/24 00:02 Oxygen Delivery Method Room Air 11/04/24 00:02 General: Alert appropriate in no acute distress Respiratory: Able to speak in full sentences, no obvious respiratory distress Skin: No obvious rashes, warm and dry Neurologic: Grossly intact no obvious asymmetries or abnormalities Psych: appropriate insight and affect, cooperative Extremity: Exquisite tenderness over the lateral epicondyle on the right side. Tenderness with wrist flexion. 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 She can not straighten her elbow out but finds that it hurts the lateral epicondyle. She does have normal and unhindered and nonpainful range of motion of the right shoulder. No warmth redness or signs that would suggest acute infection Course Orders Ordered: ED Orders 11/04/24 00:12 XR elbow RT min 3V Stat Vital Signs Vital signs: Vital Signs - 8 hr 11/04/24 00:02 Temperature 98.5 F Pulse Rate 95 H Respiratory Rate 17 Blood Pressure 155/85 H Pulse Oximetry 99 Oxygen Delivery Method Room Air Medical Decision Making [facility] Narrative Medical decision making narrative: 33-year-old woman with a month of increasing right lateral epicondylar pain to the point where it is inhibiting her ability to work and function. Physical exam is entirely consistent with lateral epicondylitis with no evidence of fracture on x-ray, no effusion, no concern for septic joint or bursitis. We discussed a brief course of prednisone to help with the acute inflammation 1st dose is given in the emergency department. Recommended use of a tennis elbow band and explained rationale behind to use Suggested follow up with her primary care physician, she is still having pain referral to physical therapy is going to be appropriate Sling to help with overall pain and return to work note for Wednesday Right arm is placed in a sling findings in staff, she is neurovascularly intact pre and post placement She is safe for discharge Discharge Plan Departure Patient Disposition: Home Clinical Impression: Lateral epicondylitis (tennis elbow) Qualifiers: Laterality: right Qualified Code(s): M77.11 - Lateral epicondylitis, right elbow Instructions: DI for Lateral Epicondylitis (Tennis Elbow) Activity Restrictions/Additional Instructions: Thank you for coming in today The x-ray of your elbow was reassuringly normal, there was no sign of infection or fracture. Based on her clinical exam and history, you have lateral epicondylitis which is inflammation in pain where the muscles from your forearm attach to your elbow. Using 400 mg of ibuprofen (2 [id number] pills) and 1 Tylenol every 6 hours can be very helpful in controlling pain. You may also find ice helpful Given you 5 days of prednisone, powerful anti-inflammatory medication as the pain is so debilitating right now. Given you a sling to help, the sling is purely for comfort The medication was electronically transmitted to [facility] in [place] I would recommend that you by a tennis elbow strap. You wrap this is tightness you can just underneath your elbow so the pulling when you use those muscles is at a slightly different spot and does not irritate the same spot in the same way Please do schedule an appoint with your primary care physician. By the time you are able to get into see him, if you are still having pain than physical therapy is going to be very appropriate If you find that you are getting worse or develop any new symptoms, please feel free to return to the emergency department for further evaluation. Prescriptions: New prednisone 20 mg tablet 20 mg PO DAILY Qty: 5 0RF No Action fluticasone propionate [Flonase Allergy Relief] 50 mcg/actuation spray,suspension 1 spray intranasal DAILY Qty: 16 0RF Rx Instructions: administer into each nostril amoxicillin-pot clavulanate 875-125 mg tablet 1 tab PO Q12H Qty: 20 0RF hydroxyzine HCl 10 mg tablet See Rx Instructions PO QID PRN (Reason: anxiety) Qty: 60 3RF Rx Instructions: t1-2 tabs PO four times daily PRN; ondansetron 4 mg tablet,disintegrating 4 mg PO Q8H PRN (Reason: nausea and vomiting) Qty: 30 0RF promethazine 25 mg tablet 25 mg PO Q6H PRN (Reason: nausea and vomiting) Qty: 30 0RF Rx Instructions: for use if zofran is ineffective Referrals: Ritesh Reynolds MD [Primary Care Provider] - Stand Alone Forms: Patient Portal/API/Survey, Work Release Note
[2024-11-04] MEDS: predniSONE 20 MG TABLET PO (03:14)
[2024-11-04 03:18] VITALS: BP 136/64; PULSE 70; RESP 16; O2SAT 95
== END 2024-11-04 03:23 | disposition home or self-care (01) ==
PROVIDERS: Emergency Provider Emergency Medicine; PCP Family Medicine
DX: M77.11 Lateral epicondylitis, right elbow (principal); X58.XXXA Exposure to other specified factors, initial encounter
CPT/HCPCS: 73080; 99283

== ENCOUNTER → 2025-04-15 16:52 | Outpatient (CLI) | payer SELFPAY ==
[2021-09-02 11:48] VITALS: BMI 30.9
[2025-04-15 17:55] LABS: Influenza A - CEPHEID Flu A NEGATIVE (NEGATIVE); Influenza B - CEPHEID Flu B NEGATIVE (NEGATIVE)
[2025-04-15 17:58] LABS: COVID-19 CEPHEID 4-PLEX PCR POSITIVE (Negative)
== END ==
PROVIDERS: PCP Family Medicine; Visit Provider Chiropractor
DX: R05.1 Acute cough (principal)
CPT/HCPCS: 87637

== ENCOUNTER 2025-04-16 19:33 | Emergency (ER) | payer SELFPAY ==
[2021-09-02 11:48] VITALS: BMI 30.9
[2025-04-16 20:00] VITALS: BP 150/103; PULSE 92; RESP 16; TEMP 37; O2SAT 98; BMI 25.0
--- NOTE | 2025-04-16 21:05 | ED_ITS ---
HPI - Female Genitourinary General Chief complaint: Urogenital-Female Stated complaint: UTI; DIAREA; POSSIBLE COVID Time Seen by Provider: 04/16/25 20:57 Source: patient Mode of arrival: Ambulatory History of Present Illness HPI Narrative: Patient is a 34-year-old healthy female presenting today with painful frequent urination. She was diagnosed with COVID yesterday. She continues to have some body aches headache. However she is noticing some painful frequent urination. She has had some diarrhea and feels like maybe she wiped a little bit different. No back pain no suprapubic pain. Related Data Home Medications ?Medication ?Instructions ?Recorded ?Confirmed escitalopram oxalate 20 mg tablet mg PO 01/28/2504/15 hydroxyzine HCl 25 mg tablet 25 mg PO 3XD PRN anxiety 01/28/25 04/15/25 Previous Rx's ?Medication ?Instructions ?Recorded hydroxyzine HCl 10 mg tablet See Rx Instructions PO QI D PRN 04/06/23 anxiety #60 tabs cephalexin 500 mg capsule 500 mg PO BID 3 days #6 caps 04/16/25 Allergies Allergy/AdvReac Type Severity Reaction Status Date / Time haloperidol (From Haldol) AdvReac Intermediate Anxiety Verified 04/16/25 20:00 Patient History Medical History Elevated liver enzymes Gallstones Hyperglycemia Urinary tract infection Patient denies medical problems Family History Other Adopted tobacco type: vaping Exam Initial Vital Signs Initial Vital Signs: Vital Signs Temperature 98.6 F 04/16/25 20:00 Pulse Rate 92 H 04/16/25 20:00 Respiratory Rate 16 04/16/25 20:00 Blood Pressure 150/103 H 04/16/25 20:00 Pulse Oximetry 98 04/16/25 20:00 Oxygen Delivery Method Room Air 04/16/25 20:00 GENERAL: Alert 34-year-old female appears to not feel well but appears nontoxic and in no acute distress. HEENT: Head atraumatic,EOMI, pupils reactive, face symmetric, moist mucous membranes CARDIOVASCULAR: Regular rate and rhythm without murmurs, rubs or gallops. RESPIRATORY: Breath sounds equal bilaterally, no wheezes rales or rhonchi. ABDOMEN: Soft, nontender. Normoactive bowel sounds all 4 quadrants. No guarding or rebound. : No CVA tenderness EXTREMITIES: Normal range of motion, no clubbing or edema. Neurovascularly intact NEUROLOGICAL: Alert and oriented x4.Normal gait and speech. SKIN: Warm, dry, no laceration, no petechiae, no rashes or lesions. Course Vital Signs Vital signs: Vital Signs - 8 hr 04/16/25 20:00 Temperature 98.6 F Pulse Rate 92 H Respiratory Rate 16 Blood Pressure 150/103 H Pulse Oximetry 98 Oxygen Delivery Method Room Air MDM - Female Genitourinary Lab Data Labs: Point of Care Testing Test Results Negative Urine Dip Bedside Urine Glucose Negative Bedside Urine Bilirubin - Negative Bedside Urine Ketone - Negative Urine Specific [place] 1.015 Bedside Urine Occult Blood - Negative Bedside Urine pH 6.0 Bedside Urine Protein - Negative Bedside Urine Urobilinogen - Negative Bedside Urine Nitrite - Negative Bedside Urine Leukocytes - Negative Esterase MDM Narrative Medical decision making narrative: Patient healthy 34-year-old female who has known COVID presenting to day with UTI like symptoms. Urinalysis is negative for and UTI. She appears nontoxic. No flank pain. She is really having a painful frequent urination she is very symptomatic we will go ahead and treat her for 3 days. May need further evaluation for STD if symptoms continue Discharge Plan Departure Patient Disposition: Home Clinical Impression: COVID-19 Activity Restrictions/Additional Instructions: *You have been diagnosed with COVID-19 *What to do: At this time y your urine does not show any kind of infection but you are having quite a lot of symptoms so we will go ahead and clean 3 days' worth of antibiotics which should she infection if you have 1. If still having symptoms you may require further evaluation such as pelvic exam. Stay hydrated Tylenol Motrin as needed for pain and fever *Continue to take medications as directed *Follow up with your primary care provider in 2-3 days or call [phone] *Return to ER if you should have increasing back pain nausea vomiting headache shortness of breath [or] any new, worsening or concerning symptoms Prescriptions: New cephalexin 500 mg capsule 500 mg PO BID 3 Days Qty: 6 0RF No Action hydroxyzine HCl 25 mg tablet 25 mg PO 3XD PRN (Reason: anxiety) escitalopram oxalate 20 mg tablet PO hydroxyzine HCl 10 mg tablet See Rx Instructions PO QID PRN (Reason: anxiety) Qty: 60 3RF Rx Instructions: t1-2 tabs PO four times daily PRN; Referrals: Ritesh Reynolds MD [Primary Care Provider, Family Practice] Stand Alone Forms: Patient Portal/API
[2025-04-16 21:25] VITALS: BP 141/105; PULSE 82; RESP 18; TEMP 36.8; O2SAT 98
== END 2025-04-16 21:27 | disposition home or self-care (01) ==
PROVIDERS: Emergency Provider Emergency Medicine; PCP Family Medicine
DX: U07.1 COVID-19 (principal); R30.0 Dysuria
CPT/HCPCS: 81003; 81025; 99282